=== PATIENT | male | born 1955 | race Caucasian/White ===

== ENCOUNTER 2022-03-12 05:55 | Day surgery (SDC) | payer OTHER, SELFPAY ==
--- NOTE | 2022-03-07 16:20 | EKG12_ITS ---
Test Reason : PRE-OP Blood Pressure : / mmHG Vent. Rate : 081 BPM Atrial Rate : 081 BPM P-R Int : 160 ms QRS Dur : 098 ms QT Int : 382 ms P-R-T Axes : 082 074 080 degrees QTc Int : 443 ms Normal sinus rhythm Normal ECG Confirmed by SAKINA LUONG, TOMY ([id number]), editor farm journal GUMARO CHRISTENSEN ([id number]) on 03/08/2022 8:56:53 AM Referred By: SUE Confirmed By:TOMY PRESLEY MD
[2022-03-07 17:56] LABS: Hemoglobin 13.4 g/dL (13.0-16.5); Mean Corp Hgb Conc 32.7 g/dL (32-36); Mean Corpuscular Hgb 30.4 pg (27.0-32.0); Mean Platelet Vol. 10.9 fl (6.2-12.0); Platelet Count 217 K/mm3 (150-450); RBC Distribution Width CV 13.7 % (11.6-14.6); RBC Distribution Width SD 47.2 fl (35.1-43.9); Red Blood Count 4.41 M/mm3 (4.6-6.2); White Blood Count 6.8 K/mm3 (4.4-11.0)
[2022-03-07 18:43] LABS: Anion Gap 3 (5-15); BUN 16 mg/dL (7-18); BUN/Creat Ratio 18.1 RATIO (10-20); Calcium,Total 8.8 mg/dL (8.5-10.1); Chloride 104 mmol/L (98-107); Creatinine, Serum 0.88 mg/dL (0.70-1.30); EST Glomerular Filtration Rate 92 mL/min (>60); Est Glom Filt Rate - Afr Amer 112 mL/min (>60); Glucose 87 mg/dL (74-106); Potassium 3.7 mmol/L (3.5-5.1); Sodium Level 137 mmol/L (136-145)
[2022-03-12] MEDS: Lactated Ringers 1,000 ML 15 ML IV ×2 (06:05→08:31)
--- NOTE | 2022-03-12 06:13 | DCINST_ITS ---
Discharge Instructions Procedure General Surgery Diet Discharge Diet: Light diet - advance as tolerated (if you have questions about your diet instructions, please talk to you doctor.) Activity Discharge Activity: May Not Drive (for 3-5 days or while taking narcotic pain medicine.) May shower in (days): 1 Lifting Restrictions: 10 pounds Dressing / Incision Call your doctor if your incision/area has: Continuous Slow Oozing, Sudden Increased Bleeding, Increased Pain/ Swelling, Increased Redness and Foul Smelling Discharge Call your doctor if you observe: Fever of 101 or Higher Suture Line Care: Avoid Pulling/Pushing and Avoid Pinching/Bending Additional Dressing/Incision Instructions:: Change or remove dressing in 4 days. Leave steri-strips in place for 1 week. Follow Up Care Please Follow Up With: Keanu Fernández MD When: Call [phone] to make an appointment to be seen in about 10 days. Test Results: Test results from this visit will be discussed in further detail at your follow- up appointment, if applicable. Discharge Plan Admission Attending Provider: Keanu Fernández Primary Care Provider: Gregor Lassiter Discharge Orders/Prescriptions Prescriptions: No Action NK Other Ambulatory Orders: 12 Lead EKG (Routine) Timeframe: [id number] Facility: [facility] - Location: Cardiovascular Services Ordered By: Dr. Alan Vang Referrals / Follow Up: Gregor Lassiter MD [Primary Care Provider] - Disposition Disposition (needs filled in before D/C Order can be placed): Home, Self Care
--- NOTE | 2022-03-12 06:13 | PCM.HP.BLA ---
History and Physical Date of Admission: 03/12/22 Visit Reasons:?INGUINAL HERNIA Chief Complaint: inguinal hernia Is patient in pain?: Yes (4 or 5 when bending over ) Allergies No Known Allergies Allergy (Verified 12/21/15 15:08) PFSH Surgical History?(Updated 03/04/22 @ 15:27 by Ama Rahman) H/O total hip arthroplasty Family History?(Updated 03/04/22 @ 15:28 by Ama Rahman) Sister Colon cancerFather Lung cancerMother COPD (chronic obstructive pulmonary disease) Social History? Smoking Status:? Former smoker HPI HPI HPI: JOSE MANUEL BRIONES, is a 66 M who presents to the office today for surgical consultation regarding a right inguinal hernia.? The patient is referred by Dr Gregor Lassiter and a written copy of my surgical consult recommendations will return to him.? The patient previously had a right inguinal herniorrhaphy performed by Dr. Thee Campos.? The patient states that 6 months after the repair that the patient noticed a bulge. I have an operative note dated January 08, 2016.? This describes a large indirect right inguinal hernia.? Laparoscopically no defect was noted on the left.? There was an umbilical hernia.? The patient had a laparoscopic right inguinal herniorrhaphy with a Bard 3D max light weight mesh large.? Pro-Tech was used to secure repair to the pubic tubercle and then secure strap at the transversalis arch.? An umbilical hernia was fixed with a medium size Ventralex ST mesh. The patient states he was not a fan of the laparoscopic repair and does not want this duplicated.? He notes that very soon after his repair he noticed a bulge.? He has been wearing a hernia belt with a truss for several years.? He notes that multiple times per day he has to help reduce bowel.? 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 He has been a long-term cigarette smoker.? He knew that this was deleterious and he quit 3 months ago. ROS General General: No weight change, appetite, fatigue, colon cancer, breast cancer or weakness HEENT HEENT: No difficulty swallowing, eye injury, eye surgery, swollen glands or hoarseness Endo Endocrine: No thyroid disease, diabetes mellitus, thyroid cancer, Hair loss, heat intolerance or cold intolerance Skin Skin: No rash or changing moles Breast Breast: No left breast lump, right breast lump, nipple discharge, breast pain, abnormal mammogram, abnormal US or breast enlargement Musc Musculoskeletal: No back problems, arthritis, rheumatoid arthritis, gout or joint pain Cardio Cardiovascular: No murmur, pacemaker, heart disease, atrial fibrillation, high blood pressure, heart attack, heart stent, palpitations, shortness of breat with exertion or chest pain Psych Psychiatric: No depression, anxiety or hearing voices Resp Respiratory: No shortness of breath, No sleep apnea, No cough, No COPD, No asthma, No emphysema and No wheezing Gastro Gastrointestinal: No abdominal pain, No nausea or vomiting, No diarrhea, No constipation, No blood in stool, No acid reflux, No hemorrhoids, No ulcers, No gallbladder problem and No black,tarry stools Nicholas Hematologic: No blood thinners, No blood disorders, No bleeding, No anemia and No blood clots Neuro Neurologic: No system reviewed and no additional complaints, except as documented, No as per HPI, No abnormal gait, No abnormal hearing, No abnormal movements, No abnormal speech, No behavioral changes, No burning sensations, No confusion, No convulsions, No disequilibrium, No dizziness, No localized weakness, No frequent falls, No headache(s), No lack of coordination, No loss of vision, No memory loss, No numbness, No other visual disturbances, No radicular pain, No restless legs, No sensory deficit, No syncope, No tingling, No tremor(s), No weakness and No other Exam Const General: cooperative, comfortable and no acute distress Nutritional Appearance: average body habitus Orientation: alert and awake [facility] Head: normal to inspection Eyes General: appearance normal, both eyes and all related structures Neck Neck: normal visual inspection Chest Other: Increased anterior posterior diameter, clear to auscultation Cardio Rate: regular rate Rhythm: regular rhythm GI Other: Soft, nontender, no hepatosplenomegaly Other: Testicles are descended, obvious sizable right inguinal hernia with multiple loops of bowel.? Gentle pressure was required to get reduction.? Significant fixed fascial defect palpable.? Testicles are descended atrophic Musc Cervical Spine: normal cervical lordosis Skin General: no rashes or lesions noted Neuro General: patient alert, patient awake and patient oriented x3 Extrem General: no calf tenderness Psych Appearance: grossly normal Assessment and Plan Assessment and Plan (1) Recurrent right inguinal hernia: ?Status:?Acute ?Plan - Dr. Keanu Fernández MD: 66-year-old gentleman who has a recurrent right inguinal hernia with significant amount of small bowel in his scrotum.? There is a fixed fascial defect.? Failure of the laparoscopic repair with lightweight mesh.? I proposed to the patient a right inguinal herniorrhaphy done through an open approach.? I will attempt a Jasmin approach however due to the very fixed nature of the fascial defect this may require a plug and patch technique.? He is aware of the technique, benefit, risk, alternatives.? He states he is not on any chronic medications.? He does work as a hand meat salter.? I have cautioned him that he will require recuperative time.? He states that he can have someone do the heavy lifting while he does the fine work perhaps starting 2 weeks postoperatively.? He is aware of the technique, benefit, risk, alternatives.? No guarantees of success have been offered. I appreciate the opportunity of assisting with the surgical care Copy: Dr Gregor Fernández M.D., F.A.C.S I have re-examined the patient. There are no clinical changes since date of exam. Keanu Fernández M.D., F.A.C.S.
[2022-03-12 06:20] VITALS: BP 142/92; PULSE 73; RESP 18; TEMP 36.9; O2SAT 95; BMI 24.3
[2022-03-12] MEDS: Cefazolin 2 GM in 0.9% Normal Saline 100 ML IV (07:25)
--- NOTE | 2022-03-12 07:30 | HERN_PTH ---
PATIENT: JOSE MANUEL BRIONES [place] [facility] [id number] AGE/SX: 66/M ROOM: RE03/12/[address]: Dr. Keanu Fernández MD : 1955 BED: DIS: 03/12/2022 SPEC #: [id number] RECD: 03/12/22 09:17 STATUS: ESTELITA REGreg #: [id number] RITA: 03/12/22 07:[address]: Keanu Fernández DEPT: SURGICAL PATHOLOGY RECD BY: Jen Allen ENTERED: 03/12/22 09:36 SP TYPE: Hernia OTHR DR: Dr. Gregor Lassiter MD Tissues: HERNIA Procedures: Surgery Specimen Level II HEADER OPERATION: Open recurrent right inguinal herniorrhaphy with mesh PRE-OP DIAGNOSIS: Recurrent inguinal hernia TISSUE SUBMITTED: Right inguinal hernia sac MICROSCOPIC DIAGNOSIS Right inguinal hernia sac, herniorrhaphy: Fibrosis with focal extraneous pigment deposition. AM:aleta 03/13/2022 MICROSCOPIC DESCRIPTION Slides are reviewed. GROSS DESCRIPTION Received in fixative is one container labeled with the patient's name and designated right inguinal hernia sac. The specimen consists of a piece of schwartz, soft tissue consistent with membranous sac measuring 4.5 cm in length and up to 4 cm in width. No mass lesion is identified. Telephone Ad Taker sections are submitted in one cassette. / SJ:aleta 03/12/2022 TC:5 CPT: 89151
[2022-03-12] MEDS: Bupivacaine Mpf 0.5% 30 ML VIAL (07:44)
--- NOTE | 2022-03-12 08:51 | OP.PCM_ITS ---
Problems Associated Problem List Diagnoses (1) Recurrent right inguinal hernia: Report of Operation Date of Procedure: 03/12/22 Pre-Operative Diagnosis: Recurrent right inguinal hernia Post-Operative Diagnosis: Recurrent indirect right inguinal hernia Surgery/Procedure Performed:: Jasmin recurrent right inguinal herniorrhaphy Bard mesh preshaped keyhole 10 x 4.5 cm lot number [id number], reference [id number], expiry date 05/19/2026 Description of Surgical Findings:: Timeout and informed consent was obtained. 66-year-old gentleman was taken to the operating placed upon table underwent general anesthesia. Right groin and scrotum were sterilely prepped and draped. Ancef 2 g were given intravenously. 0.5% Marcaine was used as a local anesthetic. Skin sites were pretty anesthet ized. A transverse right groin incision was created sharp dissection carried down through the subcutaneous tissue external bleak identified. External bleak was incised to the external ring. There was significant mount of bowel involved within the hernia and this was manually reduced. Circumferential control was obtained of the cord structures and a Jodie drain placed. The cremasterics fibers at the internal ring were transected. Scar tissue was encountered from the previous laparoscopic repair and sharp and blunt dissection was used to free the cord structures at the internal ring. The ilioinguinal nerve was identified and protected. Dissection was performed so as to identify the direct space overlying the pubic tubercle. The sac was then identified at the internal ring it was tediously dissected free. It was a significantly large sac and quite thickened. The sac was opened to ensure no bowel involvement and was completely freed to the internal ring. The sac was then high ligated with 3-0 Vicryl double ligatures. Portion of the sac was amputated and submitted to specimen. Hemostasis was intact. The transversalis fascia was approximated self from the pubic tubercle to the internal ring with a running 3-0 Ethibond. A keyhole mesh was placed around the internal ring and secured to itself laterally with a 3-0 Ethibond. The tails were somewhat shortened and the mesh was placed beneath the external oblique laterally. The ilioinguinal nerve was protected with the cord structures. The mesh was in place was to cover the direct space and overlie the pubic tubercle. It was then secured with multiple interrupted 3-0 Ethibond sutures at the pubic tubercle aponeurosis of the internal Oblique shelving edge of parts. An additional suture was placed at the i nternal ring location. Excellent positioning of the mesh was felt to been achieved with a good flat lie. The external bleak was approximated with interrupted 3-0 Vicryl. The CECE incisional area was no signs with 0.5% Marcaine and a total of 30 cc was used throughout the procedure. Subdermal tissues were approximate interrupted 4-0 Monocryl. Skin edges approximated running subcuticular 4-0 Monocryl. Steri-Strips Telfa OpSite dressings applied. Sponge and instrument and needle counts were reported to the surgeon to be correct. Specimens hernia sac. Drains none. Blood loss minimal. The patient was taken to the recovery room in satisfactory condition without wound complication Keanu Fernández M.D., F.A.C.S. Surgeon: Keanu Fernández
[2022-03-12 09:03] VITALS: BP 142/92; BP 158/94; PULSE 95; RESP 16; TEMP 36.4; O2SAT 99
[2022-03-12 09:15] VITALS: BP 142/92; BP 145/88; PULSE 82; RESP 16; O2SAT 93
[2022-03-12 09:30] VITALS: BP 139/83; BP 142/92; PULSE 73; RESP 16; O2SAT 92
[2022-03-12 09:45] VITALS: BP 137/88; BP 142/92; PULSE 67; RESP 16; TEMP 36.3; O2SAT 93
[2022-03-12 10:30] VITALS: BP 142/92; BP 151/89; PULSE 67; RESP 16; TEMP 36.3; O2SAT 92
== END 2022-03-12 10:40 | disposition home or self-care (01) ==
LOC: SDC 05:57 → AC 05:57
PROVIDERS: Anesthesiology; PCP Family Medicine; Referring Provider Family Medicine; Visit Provider Surgery
PROC: (CPT 49520; principal; 2022-03-12 07:15)
DX: K40.91 Unilateral inguinal hernia, without obstruction or gangrene, recurrent (principal); Z87.891 Personal history of nicotine dependence
CPT/HCPCS: 49520; 00830; 36415; 80048; 85027; 88302; 93005; J7120; C1781; J2405

== ENCOUNTER → 2022-03-13 | Outpatient (CLI) | payer OTHER, SELFPAY ==
--- NOTE | 2022-03-13 14:52 | ECHOD_ITS ---
Reason For Study: MURMUR Procedure This was a 2D Doppler, Color Flow transthoracic echocardiogram. The study was technically difficult. Exam performed in department. Left Ventricle Normal LV size. Left ventricular systolic function is normal. The estimated ejection fraction is 70 %. No evidence for diastolic dysfunction. No regional wall motion abnormalities noted. Right Ventricle Normal RV size. Normal systolic function. Atria Normal left atrium. Normal right atrium. No doppler evidence for ASD. Mitral Valve There is no mitral annular calcification. Normal mitral valve. Trivial mitral valve insufficiency. Tricuspid Valve Normal tricuspid valve. Trivial tricuspid valve insufficiency. Right ventricular systolic pressure estimated to be 32 mmHg. Aortic Valve The aortic valve leaflets are not well visualized in the short axis view, however, based upon other 2D echocardiographic images obtained there appears to be diffuse thickening, calcification, and partial restriction. Severe aortic stenosis. Pulmonic Valve The pulmonic valve is not well visualized. Great Vessels The aortic root is not well visualized. Pericardium/Pleural No pericardial effusion. MMode/2D Measurements & Calculations LVIDd: 4.2 cm IVSd: 1.0 cm LVOT diam: 2.0 cm LVIDs: 2.6 cm LVPWd: 0.98 cm LVOT area: 3.2 cm2 RVDd: 3.5 cm FS: 37.7 % LAV(MOD-bp): 51.5 ml LVAd ap4: 26.3 cm2 SV(MOD-sp4): 50.8 ml LAV(MOD-bp) Indexed: 28.4 ml/m2 LVLd ap4: 8.2 cm LAV(MOD-sp2): 52.5 ml EDV(MOD-sp4): 71.2 ml LAV(MOD-sp4): 48.7 ml EDV(sp4-el): 71.8 ml LVAs ap4: 12.6 cm2 LVLs ap4: 6.8 cm ESV(MOD-sp4): 20.4 ml ESV(sp4-el): 19.9 ml EF(MOD-sp4): 71.4 % EF(sp4-el): 72.2 % SV(sp4-el): 51.9 ml LA A4 area: 18.4 cm2 RA A4 area: 14.8 cm2 Time Measurements MV dec time: 0.22 sec Doppler Measurements & Calculations MV E max fabian: 84.4 cm/sec Lat Peak E' Fabian: 8.8 cm/sec Med Peak E' Fabian: 9.2 cm/sec MV A max fabian: 101.9 cm/sec E/E' lat: 9.5 E/E' med: 9.2 MV E/A: 0.83 Ao V2 max: 486.8 cm/sec LV V1 max: 142.7 cm/sec SV(LVOT): 99.9 ml Ao max P.8 mmHg LV V1 max P.1 mmHg Ao V2 mean: 347.4 cm/sec LV V1 mean P.2 mmHg Ao mean P.6 mmHg LV V1 mean: 95.4 cm/sec Ao V2 VTI: 108.2 cm LV V1 VTI: 31.1 cm VIMAL(I,D): 0.92 cm2 VIMAL(V,D): 0.94 cm2 PA V2 max: 96.9 cm/sec TR max fabian: 268.6 cm/sec TR max P.9 mmHg ECHO/Echo Complete Interpretation Summary The study was technically difficult. Left ventricular systolic function is normal. The estimated ejection fraction is 70 %. Trivial mitral valve insufficiency. Trivial tricuspid valve insufficiency. The aortic valve leaflets are not well visualized in the short axis view, howev er, based upon other 2D echocardiographic images obtained there appears to be diffuse thickening, ca lcification, and partial restriction. Severe aortic stenosis. Right ventricular systolic pressure estimated to be 32 mmHg. No evidence for diastolic dysfunction. Ordering Physician: Gregor Lassiter Referring Physician: Gregor Lassiter Performed By: Nilda Blackwood RDCS
== END | disposition home or self-care (01) ==
LOC: CVS 14:51
PROVIDERS: PCP Family Medicine; Referring Provider Family Medicine; Visit Provider Family Medicine
DX: R01.1 Cardiac murmur, unspecified (principal)
CPT/HCPCS: 93306

== ENCOUNTER → 2022-03-19 | Outpatient (CLI) | payer OTHER, SELFPAY ==
[2022-03-19 18:48] LABS: ALB/GLOB Ratio 0.7 RATIO (0.9-2.4); AST(SGOT) 30 U/L (15-37); Alanine Aminotransfer ALT/SGPT 47 U/L (16-61); Albumin, Serum 3.4 g/dL (3.2-5.0); Alkaline Phosphatase 137 U/L (45-117); Anion Gap 7 (5-15); BUN 13 mg/dL (7-18); BUN/Creat Ratio 17.3 RATIO (10-20); Calcium,Total 9.2 mg/dL (8.5-10.1); Chloride 101 mmol/L (98-107); Cholesterol 244 mg/dL (200); Creatinine, Serum 0.75 mg/dL (0.70-1.30); EST Glomerular Filtration Rate 111 mL/min (>60); Est Glom Filt Rate - Afr Amer 134 mL/min (>60); Globulin 4.7 g/dL (2.2-4.2); Glucose 91 mg/dL (74-106); High Density Lipoprotein 37 mg/dL; Potassium 3.8 mmol/L (3.5-5.1); Protein, Total 8.1 g/dL (6.4-8.2); Sodium Level 136 mmol/L (136-145); Triglycerides 211 mg/dL; Very Low Density Lipoprotein 42 mg/dL (5-40)
== END | disposition home or self-care (01) ==
LOC: MFPLAB 16:37
PROVIDERS: PCP Family Medicine; Visit Provider Family Medicine
DX: E78.5 Hyperlipidemia, unspecified (principal)
CPT/HCPCS: 36415; 80053; 80061

== ENCOUNTER → 2022-06-05 | Outpatient (CLI) | payer OTHER, SELFPAY ==
--- NOTE | 2022-06-05 16:14 | RAD_ITS ---
STUDY: X-RAY CHEST REASON FOR EXAM: Male, 66 years old. CHEST PAIN as TECHNIQUE: XR Chest 2 Views COMPARISON: None FINDINGS: There is no demonstrated pleural abnormality. 4mm right upper lobe nodule. Normal size heart. Normal mediastinum and juanjo. Normal visualized pulmonary arteries. There is atherosclerotic calcification of the aortic arch with tortuosity. There are diffuse degenerative changes of the visualized thoracic spine. There is degenerative osteoarthritis of the bilateral shoulders. There is no demonstrated abnormality of the visualized soft tissue structures of the upper abdomen. RAD/Chest PA and Lateral IMPRESSION: 4mm right upper lobe nodule. Correlation with prior imaging would be helpful if available. Otherwise, please obtain chest CT follow-up. Electronically Signed: Beltran Yun MD at 16:25 EDT ,
[2022-06-05 17:00] LABS: Absolute Lymphocyte Count 3.13 X10^3/uL (0.83-4.51); Absolute Neutrophil Count 4.4 X10^3/uL (2.0-7.7); Basophil# 0.05 X10^3/uL; Basophil% 0.6 % (0-1); Eosinophils% 2.3 % (0-5); Hematocrit 43.7 % (40-54); Hemoglobin 14.4 g/dL (13.0-16.5); Lymphocyte # 3.13 X10^3/ul (0.83-4.51); Lymphocyte % 36.6 % (19-41); Mean Corpuscular Hgb 30.8 pg (27.0-32.0); Mean Corpuscular Volume 93.6 fL (80-94); Mean Platelet Vol. 11.1 fl (6.2-12.0); Monocyte# 0.71 X10^3/uL; Monocyte% 8.3 % (0-10); NRBC Flagged by Analyzer 0 % (0-5); Neutrophil # 4.44 X10^3/uL (2.7-7.7); Neutrophil % 51.8 % (47-70); Platelet Count 209 K/mm3 (150-450); RBC Distribution Width CV 13.3 % (11.6-14.6); RBC Distribution Width SD 45.6 fl (35.1-43.9); Red Blood Count 4.67 M/mm3 (4.6-6.2); White Blood Count 8.6 K/mm3 (4.4-11.0)
[2022-06-05 17:14] LABS: Anion Gap 6 (5-15); BUN 18 mg/dL (7-18); BUN/Creat Ratio 20.7 RATIO (10-20); Calcium,Total 9.3 mg/dL (8.5-10.1); Chloride 103 mmol/L (98-107); Creatinine, Serum 0.87 mg/dL (0.70-1.30); EST Glomerular Filtration Rate 94 mL/min (>60); Est Glom Filt Rate - Afr Amer 113 mL/min (>60); Glucose 87 mg/dL (74-106); Potassium 4.1 mmol/L (3.5-5.1); Sodium Level 138 mmol/L (136-145)
== END | disposition home or self-care (01) ==
PROVIDERS: PCP Family Medicine; Referring Provider Internal Medicine Cardiovascular Disease; Visit Provider Internal Medicine Cardiovascular Disease
DX: I35.0 Nonrheumatic aortic (valve) stenosis (principal)
CPT/HCPCS: 71046; 80048; 85025

== ENCOUNTER → 2022-06-13 | Outpatient (CLI) | payer OTHER, SELFPAY ==
--- NOTE | 2022-06-13 16:56 | CT_ITS ---
INDICATION: nodule on x-ray EXAMINATION: CT CHEST WITHOUT CONTRAST - CT Chest W/O Contrast Injection TECHNIQUE: Helically acquired images were obtained of the chest. A radiation dose optimization technique was used for this scan. IV Contrast dosage and agent: None. COMPARISON: Chest x-ray obtained on 06/05/2022.. FINDINGS: LUNGS, PLEURA AND LARGE AIRWAYS: 0.8 cm densely calcified granuloma visualized in the right upper lobe. No evidence of parenchymal lung nodules or masses is seen. Bronchial wall thickening is visualized. No masses, consolidation, or edema. No pleural effusion or thickening. No pneumothorax. THYROID: No thyroid lesions. HEART AND PERICARDIUM: Heart size is normal. Pericardial wall thickening is visualized. Calcifications visualized in the coronary vessels. VESSELS: Thoracic aorta is not dilated. MEDIASTINUM AND EFREN: Calcified precarinal and right hilar lymph nodes are seen.. Esophagus is unremarkable. No hiatal hernia. UPPER ABDOMEN: No acute pathology. BONES: No suspicious lytic or blastic abnormality. CT/Chest without Contrast IMPRESSION: 0.8 cm calcified granuloma visualized in the right upper lobe. No evidence of parenchymal lung masses or nodules. Calcified mediastinal and right hilar lymph nodes. Electronically Signed: Raj Hu MD at 13:01 EDT Reading Location ID and State: [facility] / [place] Tel , Service support ,
== END | disposition home or self-care (01) ==
PROVIDERS: PCP Family Medicine; Visit Provider Family Medicine
DX: R91.1 Solitary pulmonary nodule (principal)
CPT/HCPCS: 71250

== ENCOUNTER 2022-06-17 08:45 | Outpatient (CLI) | payer OTHER, SELFPAY ==
[2022-06-14 07:18] VITALS: BMI 26.6
--- NOTE | 2022-06-17 08:53 | ECHOTEE_ITS ---
Reason For Study: MURMUR Medication ANUJ probe 6VT-D (SN [id number]) passed with minimal difficulty. No complications were noted. Cetacaine Topical [place] given X3 orally. Versed 3 mg given slow IVP. Fentanyl 50 mcg given slow IVP. Left Ventricle Normal LV size. Left ventricular systolic function is normal. The estimated ejection fraction is 65 %. No regional wall motion abnormalities noted. Right Ventricle Normal RV size. Normal systolic function. Atria Normal atrial septum. Bubble contrast study negative for right to left interatrial shunt. Normal left atrium. No thrombus is detected in the left atrial appendage. Normal right atrium. Mitral Valve Normal mitral valve. Tricuspid Valve Normal tricuspid valve. Aortic Valve Trisinus/trileaflet aortic valve. Moderate focal aortic valve calcification. Mean aortic valve gradient 38 mmHg. Peak aortic valve gradient 62 mmHg. Severe aortic stenosis. Pulmonic Valve Normal pulmonic valve. Vessels Normal aortic root. Normal arch. The pulmonary artery is normal size. Pericardium No pericardial effusion. MMode/2D Measurements & Calculations LVOT diam: 2.2 cm LVOT area: 3.7 cm2 Doppler Measurements & Calculations Ao V2 max: 393.4 cm/sec LV V1 max: 107.4 cm/sec SV(LVOT): 83.0 ml Ao max P.2 mmHg LV V1 max P.6 mmHg Ao V2 mean: 293.7 cm/sec LV V1 mean P.6 mmHg Ao mean P.9 mmHg LV V1 mean: 76.7 cm/sec Ao V2 VTI: 81.6 cm LV V1 VTI: 22.5 cm VIMAL(I,D): 1.0 cm2 VIMAL(V,D): 1.0 cm2 ECHO/Echo Transesophageal (ANUJ) Interpretation Summary Normal LV size. Left ventricular systolic function is normal. The estimated ejection fraction is 65 %. Mean aortic valve gradient 38 mmHg. Peak aortic valve gradient 62 mmHg. Severe aortic stenosis. Ordering Physician: Stephen García Referring Physician: Gregor Lassiter Performed By: Tammi Pedro, KAMARI, RVT
--- NOTE | 2022-06-17 10:16 | CL.D_ITS ---
Patient Name: JOSE MANUEL BRIONES Study Date: 06/17/2022 Performing: Stephen García MD Ht: 67 inches 170.18 cm : 1955 Wt: 170 lbs 77.11 kg Age: 66 Gender: male BSA: 1.89 PROCEDURE(S) PERFORMED DC02-(23800)C/COR CLINICAL PROFILE AND INDICATIONS Indications: Valvular Disease Heart Failure: None Stress/Imaging Stress/Image Study Performed: No CAD Presentations: Symptom unlikely to be ischemic. CONCLUSIONS Non obstructive coronary arteries Aortic Valve Stenosis- Severe Aortic valve mean gradient by echo was 55 mmHg. RECOMMENDATIONS Would refer for TAVR evaluation DESCRIPTION OF PROCEDURE The patient arrived to the procedure lab. The risks and benefits of the procedure as well as a full description of our services here and current unavailability of surgical backup were fully explained to the patient and/or their significant other prior to the catheterization. The Timeout was completed, verifying the correct patient and procedure. The patient's procedural site was prepped and draped in the usual fashion. Local anesthetic was given subcutaneously to right radial region with Lidocaine 2%. Using a modified Seldinger technique, arterial access was obtained via the right radial artery, a 6Fr sheath was inserted. Left Coronary Artery selective angiography was performed in multiple views using a 5 Fr. 4.0 [place] catheter. Right Coronary Artery selective angiography was then performed in multiple views using a 5 Fr. 4.0 [place] catheter.The arterial sheath was pulled and a TR Band was applied for hemostasis w/ 10ml air CORONARY ANGIOGRAPHY DOMINANCE: Co- Dominant LEFT HEART ASSESSMENT Left Ventricular Ejection Fraction: by LV Gram 70 % Normal LV wall motion Normal Left Ventricular systolic function LEFT MAIN: Angiographically normal LEFT ANTERIOR DESCENDING ARTERY: No significant disease noted CIRCUMFLEX ARTERY: Mild luminal irregularities RIGHT CORONARY ARTERY: Mild luminal irregularities VALVE FINDINGS: Aortic Valve Calcification - severe Aortic Valve Stenosis - severe COMPLICATIONS No Complications PROCEDURE MEDICATIONS Versed 1 mg IV Fentanyl 50 mcg IV Versed 1 mg IV Oxygen: 2 L/min via nasal cannula Heparin given IA 06/17/2022 09:51:46 Verapamil 2.5mg, 3000 units of Heparin given IA 06/17/2022 09:51:46 SUMMARY OF HEMODYNAMIC DATA Time AIR REST ECG 09:15:12 AO 111/49 (76) SA 09:53:31 AIR REST 10:12:23 Signed By Stephen García MD On 06/17/2022 10:15:47 Stephen García MD
== END 2022-06-17 13:00 | disposition home or self-care (01) ==
PROVIDERS: PCP Family Medicine; Referring Provider Internal Medicine Cardiovascular Disease; Visit Provider Internal Medicine Cardiovascular Disease
DX: I35.0 Nonrheumatic aortic (valve) stenosis (principal); Z87.891 Personal history of nicotine dependence
CPT/HCPCS: 87426; 93312; 93320; 93325; 93454; 99152; 99153; C9803; J7040; A4216; C1769; C1894; Q9967

== ENCOUNTER → 2022-07-24 | Outpatient (CLI) | payer OTHER, SELFPAY ==
[2022-07-24 18:21] LABS: Anion Gap 7 (5-15); BUN 17 mg/dL (7-18); BUN/Creat Ratio 20.6 RATIO (10-20); Chloride 103 mmol/L (98-107); Creatinine, Serum 0.82 mg/dL (0.70-1.30); EST Glomerular Filtration Rate 100 mL/min (>60); Est Glom Filt Rate - Afr Amer 121 mL/min (>60); Glucose 103 mg/dL (74-106); Potassium 3.7 mmol/L (3.5-5.1); Sodium Level 137 mmol/L (136-145)
== END | disposition home or self-care (01) ==
PROVIDERS: PCP Family Medicine
DX: I35.0 Nonrheumatic aortic (valve) stenosis (principal)
CPT/HCPCS: 36415; 80048

== ENCOUNTER → 2022-09-05 | Outpatient (CLI) | payer OTHER, SELFPAY ==
--- NOTE | 2022-09-05 09:48 | VDLE_ITS ---
Reason For Study: DVT Procedure LEFT This is a venous duplex using B-mode, color GSV is normal. flow and spectral Doppler. CFV is compressible, spontaneous, phasic, Exam performed in department. competent, and demonstrates normal The exam was abbreviated due to the COVID 19 augmentation. protocol. FV is compressible, spontaneous, phasic, The exam was diagnostic. competent and demonstrates normal A preliminary report was called and/or faxed augmentation. to Dr. Liu's office. POP V is compressible, spontaneous, phasic, competent and demonstrates normal augmentation. T/P Trunk is compressible. PTV is compressible. LT PerV is compressible. Soleus V is dilated and noncompressible. VL/Venous Duplex US, Unilateral Interpretation Summary Acute deep vein thrombosis is noted in the left soleus vein. The remainder of t he left lower extremity deep venous system is patent and compressible. Valvular competence ap pears intact within the proximal deep venous system on the left . The left great saphenous vein mich ears patent and compressible segmentally. Ordering Physician: Mark Liu Performed By: Steve Rodriguez RVT
== END | disposition home or self-care (01) ==
PROVIDERS: PCP Family Medicine; Referring Provider Family Medicine; Visit Provider Family Medicine
DX: I82.409 Acute embolism and thrombosis of unspecified deep veins of unspecified lower extremity (principal); I86.8 Varicose veins of other specified sites
CPT/HCPCS: 93971

== ENCOUNTER → 2022-09-12 | Outpatient (CLI) | payer OTHER, SELFPAY ==
--- NOTE | 2022-09-12 08:51 | ART_ITS ---
Reason For Study: decreased pedal pulses Procedure A bilateral lower extremity continuous wave Doppler with analog waveform analysis and ankle brachial indexes. Left Segmental Pressures Left brachial= 142mmHg. Left posterior tibial artery = 153mmHg. Left dorsalis pedis artery = 139mmHg. The left posterior tibial artery waveforms are biphasic. The left dorsalis pedis waveforms are triphasic. Right Segmental Pressures Right brachial= 143mmHg. Right posterior tibial artery = 154mmHg. Right dorsalis pedis artery = 140mmHg. The right posterior tibial artery waveforms are triphasic. The right dorsalis pedis waveforms are biphasic. Indices The right ankle brachial index by the dorsalis pedis is .98. The right ankle brachial index by the posterior tibial artery is 1.08. The left ankle brachial index by the posterior tibial artery is 1.07. The left ankle brachial index by the dorsalis pedis is .97. VL/Ankle Brachial Index Interpretation Summary Triphasic and biphasic Doppler waveforms are noted at ankle level bilaterally. Pulse-volume recordings appear satisfactory at ankle level bilaterally. Resting ankle-brachi al indices are normal bilaterally. There is no evidence of significant arterial occlusive disease in the lower ext remities bilaterally. Ordering Physician: Gregor Lassiter Performed By: Steve Rodriguez RVT
== END | disposition home or self-care (01) ==
LOC: CVS 08:46
PROVIDERS: PCP Family Medicine; Referring Provider Family Medicine; Visit Provider Family Medicine
DX: R09.89 Other specified symptoms and signs involving the circulatory and respiratory systems (principal)
CPT/HCPCS: 93922

== ENCOUNTER → 2022-09-19 | Outpatient (CLI) | payer OTHER, SELFPAY | END | disposition home or self-care (01) | LOC: LAB 16:40 | PROVIDERS: PCP Family Medicine; Visit Provider Physician Assistant | DX: I82.409 Acute embolism and thrombosis of unspecified deep veins of unspecified lower extremity (principal) | CPT/HCPCS: 36415; 86022 ==

== ENCOUNTER → 2022-10-14 | Outpatient (CLI) | payer OTHER, SELFPAY ==
[2022-10-14 15:16] LABS: Absolute Lymphocyte Count 1.66 X10^3/uL (0.83-4.51); Absolute Neutrophil Count 3.2 X10^3/uL (2.0-7.7); Basophil# 0.05 X10^3/uL; Basophil% 0.8 % (0-1); Eosinophil# 0.35 X10^3/uL; Eosinophils% 5.8 % (0-5); Hematocrit 35.7 % (40-54); Hemoglobin 11.2 g/dL (13.0-16.5); Lymphocyte # 1.66 X10^3/ul (0.83-4.51); Lymphocyte % 27.5 % (19-41); Mean Corp Hgb Conc 31.4 g/dL (32-36); Mean Corpuscular Hgb 29.5 pg (27.0-32.0); Mean Corpuscular Volume 93.9 fL (80-94); Mean Platelet Vol. 11.5 fl (6.2-12.0); Monocyte# 0.72 X10^3/uL; Monocyte% 11.9 % (0-10); NRBC Flagged by Analyzer 0 % (0-5); Neutrophil # 3.23 X10^3/uL (2.7-7.7); Neutrophil % 53.7 % (47-70); Platelet Count 233 K/mm3 (150-450); RBC Distribution Width CV 14.2 % (11.6-14.6); RBC Distribution Width SD 48.5 fl (35.1-43.9)
[2022-10-14 16:08] LABS: ALB/GLOB Ratio 0.9 RATIO (0.9-2.4); AST(SGOT) 40 U/L (15-37); Alanine Aminotransfer ALT/SGPT 34 U/L (16-61); Albumin, Serum 3.6 g/dL (3.2-5.0); Alkaline Phosphatase 118 U/L (45-117); Anion Gap 9 (5-15); BUN 12 mg/dL (7-18); Calcium,Total 8.8 mg/dL (8.5-10.1); Chloride 101 mmol/L (98-107); EST Glomerular Filtration Rate 103 mL/min (>60); Est Glom Filt Rate - Afr Amer 124 mL/min (>60); Glucose 82 mg/dL (74-106); Potassium 3.9 mmol/L (3.5-5.1); Protein, Total 7.6 g/dL (6.4-8.2); Sodium Level 137 mmol/L (136-145)
== END | disposition home or self-care (01) ==
LOC: MFPLAB 12:03
PROVIDERS: PCP Family Medicine; Visit Provider Family Medicine
DX: Z01.818 Encounter for other preprocedural examination (principal)
CPT/HCPCS: 36415; 80053; 85025

== ENCOUNTER 2022-10-17 05:54 | Day surgery (SDC) | payer OTHER, SELFPAY ==
[2022-10-17] VITALS (7 sets, daily range): BP systolic 120–135; BP diastolic 77–86; PULSE 88–96; RESP 16–18; TEMP 36.1–37.3; O2SAT 94–98; BMI 27.2
--- NOTE | 2022-10-17 | BON_PTH ---
PATIENT: JOSE MANUEL BRIONES [place] [facility] [id number] AGE/SX: 66/M ROOM: RE10/17/[address]: Dr. Johnny Medellin DPM : 1955 BED: DIS: 10/17/2022 SPEC #: [id number] RECD: 10/17/22 09:36 STATUS: ESTELITA REGreg #: [id number] RITA: 10/17/22 00:[address]: Johnny Medellin DEPT: SURGICAL PATHOLOGY RECD BY: Logan Navarrete ENTERED: 10/17/22 09:36 SP TYPE: Bone OTHR DR: Dr. Gregor Lassiter MD Tissues: Bone of foot, NOS Procedures: Decalcification bone/plaque Surgery Specimen Level IV HEADER OPERATION: Amputation fourth toe PRE-OP DIAGNOSIS: Dry gangrene right fourth toe TISSUE SUBMITTED: Partial right fourth toe MICROSCOPIC DIAGNOSIS Right fourth toe, amputation: Focal ulceration and gangrenous necrosis with associated acute inflammation. Underlying bone with acute osteomyelitis. VENITA:aleta 10/23/2022 MICROSCOPIC DESCRIPTION Slides are reviewed. GROSS DESCRIPTION Received in fixative is one container labeled with the patient's name and designated partial right fourth toe. The specimen consists of a distal toe containing nail, skin, bone and soft tissue measuring 2 cm in length and 1.6 cm in diameter. The plantar surface contains an area of mummification that is black-parson in color measuring 2 x 1.6 cm. A longitudinal section of the entire specimen is submitted in one cassette after decalcification. / AM:aleta 10/17/2022 TC:2 CPT: 80996, 89008
[2022-10-17] MEDS: 0.9% Normal Saline 1,000 ML 25 ML IV (07:05)
[2022-10-17] MEDS: Cefazolin 2 GM in 0.9% Normal Saline 100 ML IV (07:30)
[2022-10-17] MEDS: Bupivacaine Mpf 0.5% 30 ML VIAL (07:54)
--- NOTE | 2022-10-17 08:29 | PCM.OPRPT ---
Problems Associated Problem List Diagnoses (1) Atheromatous embolus of both lower extremities: (2) Gangrene of right foot: (3) Osteomyelitis of foot, right, acute: Report of Operation Date of Procedure: 10/17/22 Pre-Operative Diagnosis: 1) dry gangrene right fourth toe in setting of acute thromboembolism after aortic valve placement secondary to shower emboli Post-Operative Diagnosis: 2) same Surgery/Procedure Performed:: Right fourth toe amputation at the level of fourth metatarsal phalangeal joint Description of Surgical Findings:: Patient underwent aortic valve replacement endovascularly in the right groin subsequently after the procedure developed acute ischemic pain to the right and left lower extremity. Patient was seen by vascular surgeon Dr. Cat placed on cilostazol Eliquis and given nitroglycerin for topical application. At which time I was consulted in the outpatient setting to observe the site and plan any definitive amputation or debridement as necessary. Initially we observe the site for a period of 3 weeks to await demarcation to demonstrate the extent of vascular injury. At which time the fourth digit did necrosis, but it was limited to the site. All other pain and areas of ischemia have resolved since that time. Plan for right fourth digit amputation was subsequently planned. Patient was brought back the operating placed comfortably in supine position on the operating room table. Well-padded ankle tourniquet was applied to right lower extremity this was not used throughout the case. Right lower extremity was bumped using a hip bump. Preoperatively 10 cc of half percent Marcaine plain were used to perform a Jensen block to the right fourth metatarsal phalangeal area. This was performed aseptically. Right lower extremity was then scrubbed prepped draped using typical aseptic manner. Once cleared by anesthesia and additional 10 cc of half percent Marcaine plain were used to perform additional local anesthesia using the after mentioned technique. A linear incision was drawn along the dorsal aspect of the toe down to level of metatarsophalangeal joint this was made full-thickness down to level of bone and capsule using a #15 blade. Subsequently the right fourth digit was dissected and removed at the level of the metatarsal phalangeal joint care was taken to avoid any adjacent neurovascular structures which were protected using blunt retraction. Any bleeders were identified and cauterized. Throughout the case there is noted to be adequate bleeding suggestive of good healing potential to the amputation site. The necrotic tissue was then completely removed and split and sent to pathology and culture labeled as right fourth digit. Incisional site was flushed with copious amounts normal sterile saline. As mentioned no residual necrotic tissue was noted or nonviable tissue and there is good adequate bleeding to the skin and deep tissue. This was then closed using simple interrupted technique with 4-0 Prolene and dressed with bacitracin Adaptic 4 x 4's Kerlix and a very lightly wrapped Ed bandage. Patient was transferred to PACU vital signs stable vascular status intact all digits for further monitoring prior to discharge patient tolerated procedure and anesthesia well in apparent satisfactory condition. Patient will maintain that heel weightbearing status to the right foot and follow-up in 1 week at which time we will change his dressing observe the surgical site.
--- NOTE | 2022-10-17 08:40 | RAD_ITS ---
STUDY: X-RAY - RIGHT FOOT CLINICAL: Male, 66 years old. Right 4th toe amputation TECHNIQUE: 3 view(s) of the foot. COMPARISON: None. FINDINGS: There is a plantar calcaneal spur. Normal visualized subtalar, talonavicular, calcaneocuboid, tarsal and tarsometatarsal articulations. Normal metatarsi. Normal metatarsophalangeal joint of the great toe. Normal tibial and fibular sesamoid bones. Normal interphalangeal joint of the great toe. Normal phalanges of the great toe. Normal second through fifth metatarsophalangeal joints. The patient is status post resection of the fourth toe. Diffuse soft tissue swelling. RAD/Foot min 3 Views IMPRESSION: Status post amputation of the fourth toe with overlying soft tissue swelling. Electronically Signed: Hua Rosales MD at 12:45 EST ,
== END 2022-10-17 09:29 | disposition home or self-care (01) ==
LOC: SDC 05:55 → AC 05:55
PROVIDERS: PCP Family Medicine; Referring Provider Podiatrist; Visit Provider Podiatrist
PROC: (CPT 28820; principal; 2022-10-17 07:15)
DX: M86.171 Other acute osteomyelitis, right ankle and foot (principal); I96 Gangrene, not elsewhere classified; I75.023 Atheroembolism of bilateral lower extremities; E78.5 Hyperlipidemia, unspecified; I35.0 Nonrheumatic aortic (valve) stenosis; Z95.2 Presence of prosthetic heart valve; Z87.891 Personal history of nicotine dependence; Z86.718 Personal history of other venous thrombosis and embolism
CPT/HCPCS: 28820; 01480; 73630; 87070; 87075; 87077; 87176; 87186; 87205; 88304; 88305; 88311; J7030; J7120

== ENCOUNTER → 2022-11-28 | Outpatient (CLI) | payer MEDICARE, SELFPAY ==
[2022-11-28 16:44] LABS: Erythrocyte Sedimentation Rate 19 mm/hr (0-20)
[2022-11-28 16:45] LABS: Absolute Lymphocyte Count 2.62 X10^3/uL (0.83-4.51); Absolute Neutrophil Count 3.3 X10^3/uL (2.0-7.7); Basophil# 0.07 X10^3/uL; Eosinophil# 0.23 X10^3/uL; Eosinophils% 3.4 % (0-5); Hematocrit 41.6 % (40-54); Hemoglobin 13.1 g/dL (13.0-16.5); Lymphocyte # 2.62 X10^3/ul (0.83-4.51); Lymphocyte % 38.4 % (19-41); Mean Corp Hgb Conc 31.5 g/dL (32-36); Mean Corpuscular Hgb 29.8 pg (27.0-32.0); Mean Corpuscular Volume 94.8 fL (80-94); Mean Platelet Vol. 12.2 fl (6.2-12.0); Monocyte% 8.8 % (0-10); NRBC Flagged by Analyzer 0 % (0-5); Neutrophil # 3.26 X10^3/uL (2.7-7.7); Neutrophil % 47.8 % (47-70); Platelet Count 215 K/mm3 (150-450); RBC Distribution Width CV 14.1 % (11.6-14.6); Red Blood Count 4.39 M/mm3 (4.6-6.2); White Blood Count 6.8 K/mm3 (4.4-11.0)
[2022-11-28 19:27] LABS: Anion Gap 7 (5-15); BUN 21 mg/dL (7-18); BUN/Creat Ratio 21.2 RATIO (10-20); CRP 6.16 mg/L (0.0-3.0); Calcium,Total 9.1 mg/dL (8.5-10.1); Chloride 104 mmol/L (98-107); Creatinine, Serum 0.99 mg/dL (0.70-1.30); EST Glomerular Filtration Rate 81 mL/min (>60); Est Glom Filt Rate - Afr Amer 98 mL/min (>60); Glucose 149 mg/dL (74-106); Potassium 3.7 mmol/L (3.5-5.1); Sodium Level 140 mmol/L (136-145)
== END | disposition home or self-care (01) ==
PROVIDERS: PCP Family Medicine; Referring Provider Surgery Trauma Surgery; Visit Provider Surgery Trauma Surgery
DX: I75.023 Atheroembolism of bilateral lower extremities (principal); I35.0 Nonrheumatic aortic (valve) stenosis
CPT/HCPCS: 36415; 80048; 85025; 85652; 86140

== ENCOUNTER 2022-12-10 14:09 | Emergency (ER) | payer MEDICARE, SELFPAY ==
[2022-12-10] VITALS (7 sets, daily range): BP systolic 148–189; BP diastolic 78–99; PULSE 91–107; RESP 16–23; TEMP 36.1; O2SAT 94–97; BMI 28.8
--- NOTE | 2022-12-10 14:32 | EX.ED.DYSGE1 ---
HPI History of Present Illness Chief Complaint: Shortness of Breath Detail of Chief Complaint: Aortic dissection Informant: patient Narrative Narrative: Patient presents to the emergency department from [place] where it was noted that he had a aortic dissection. Patient was seeing vascular surgeon Dr. Cat because he has been getting clots in his toes and has lost some toes amputation. Patient tells me that he had aortic valve replacement at [facility] in August. Since that time is developed a DVT and he is on Eliquis. Patient had a bovine valve placed. His evaluation by Dr. Cat was CTA of the chest abdomen and pelvis which was done today and it was noted that he had an infrarenal aortic dissection. I was asked to transfer patient to [facility] as it was not felt the patient could be taking care of here at [facility]. Patient denies any abdominal pain. He denies chest pain. Only complaint is of some mild dyspnea that he has had since his surgery. [facility] Medical History Cardiology follow-up encounter DVT (deep venous thrombosis) Former smoker History of echocardiogram Hyperlipidemia Nonrheumatic aortic (valve) stenosis Recurrent right inguinal hernia Right upper lobe pulmonary nodule Wears dentures Wears glasses Home Medications aspirin 81 mg tablet,delayed release (Adult Low Dose Aspirin) 81 mg PO DAILY for left heart cath 06/05/22 [History Last Taken 10/16/22] apixaban 5 mg tablet (Eliquis) 5 mg PO BID 09/19/22 [History Last Taken 12/10/22] nitroglycerin 2 % transdermal ointment (Nitro-Bid) 0.5 inch transdermal BID 10/15/22 [History Last Taken 10/16/22] acetaminophen 500 mg capsule 500 mg PO Q6H PRN fever or pain #60 caps 10/17/22 [Rx Last Taken Unknown] oxycodone 5 mg capsule 5 mg PO Q6H PRN pain 7 days #28 caps 10/17/22 [Rx Last Taken Unknown] Allergy/AdvReac Type Severity Reaction Status Date / Time No Known Allergies Allergy Verified 12/10/22 14:15 Family History Sister Colon cancer Father Lung cancer Mother COPD (chronic obstructive pulmonary disease) Brother Sudden cardiac , Onset Age: 56 Surgical History H/O total hip arthroplasty History of left heart catheterization (06/17/22) History of transcatheter aortic valve replacement (TAVR) (08/28/22) History of transesophageal echocardiography (ANUJ) (06/17/22) Hx of hernia repair Hx of umbilical hernia repair Social History Smoking Status: Former smoker alcohol intake: never substance use type: does not use ROS ROS ED Review of Systems ROS Unobtainable: other Constitutional Constitutional ED: Reports lethargy; Denies chills, fever(s), sweats or weight loss Eyes Eyes: Denies blurry vision, change in vision or diplopia ENT ENT ED: Denies rhinorrhea or sore throat Cardiovascular Cardiovascular: Denies chest pain, orthopnea or racing heartbeat Respiratory/Chest Respiratory/Chest: Reports dyspnea; Denies cough, dyspnea on exertion, orthopnea or sputum Gastrointestinal Gastrointestinal: Denies abdominal pain, diarrhea, nausea or vomiting Genitourinary Genitourinary ED: Denies dysuria, hematuria or urinary frequency Musculoskeletal Musculoskeletal: Denies arthralgias, back pain, myalgias or neck pain Integumentary Denies abscess, Abrasions or rash Neurologic Neurologic: Denies headache(s) or weakness Psychiatric Psychiatric: Denies anxiety, depression or suicidal thoughts Endocrine Endocrinology: Denies polydipsia, polyphagia or polyuria Hematologic/Lymphatic Hematologic/Lymphatic: Denies easy bleeding, easy bruising or lymphadenopathy Allergic/Immunologic Allergic/Immunologic ED: Denies mouth swelling, tongue swelling or urticaria EXAM Physical Exam Const Vital Signs: 12/10/22 14:10 12/10/22 14:16 12/10/22 14:16 Temperature 97 F L Temperature Source Temporal Pulse Rate 105 H 107 H Respiratory Rate 18 16 Respiratory Effort Normal Non-Labored Respiratory Depth Normal Respiratory Pattern Normal Blood Pressure 161/83 H 189/99 H Blood Pressure Mean 109 129 Pulse Ox 96 95 Oxygen Delivery Method Bi-pap Room Air Room Air 12/10/22 14:44 Temperature Temperature Source Pulse Rate 99 Respiratory Rate 23 H Respiratory Effort Respiratory Depth Respiratory Pattern Blood Pressure 163/93 H Blood Pressure Mean 116 Pulse Ox 95 Oxygen Delivery Method Room Air Positive well nourished and well developed General Appearance ED: well developed and NAD HEENT Reports TM's clear and moist mucous membranes normocephalic and atraumatic; Negative for trauma or tenderness Tympanic Membrane ED: Yes TM's clear Eyes PERRL and EOMs intact bilaterally General Eye ED: Negative for pale conjunctiva or scleral icterus Neck no lymphadenopathy, supple and no JVD General: Negative for tenderness Chest Wall inspection of chest normal and palpation of chest normal Chest: Negative for tenderness Resp normal respiratory effort and clear to auscultation bilaterally Effort and Inspection: Negative for respiratory distress or pain with movement Auscultation: Negative for rhonchi, wheezes or diminished lung sounds Cardio regular rate, regular rhythm, S1 normal heart sound, S2 normal heart sound and no murmurs Peripheral Pulses: pulses 2+ throughout GI normal to inspection, nondistended, normoactive bowel sounds, soft to palpation, non-tender, non-distended and no masses Back/Spine no CVA tenderness and no thoracic nor lumbar tenderness Extremity Extremity Narrative: Right foot-amputation of fourth toe noted. Left foot-patient has ecchymosis and discoloration to the middle toe. Patient has normal dorsal pedal posterior tibial pulses bilaterally. Patient has normal popliteal pulses. Patient has normal femoral pulses. General Extremety ED: Negative for edema General Extremity: Negative for edema Neuro oriented x3, CN's II-XII intact bilaterally, no sensory deficits noted and gait normal Sensorium / Orientation: awake, alert, oriented to person, oriented to place and oriented to time Motor Exam: strength 5/5 throughout and strength abnormal Psych mental status grossly normal Skin no rashes or lesions noted and no wounds MDM MDM MDM Narrative Medical decision making narrative: I called [facility] after evaluating the patient to discuss with their vascular team. I spoke with Dr. Jean who accepted transfer of patient to their facility. IV line x2 established. Patient placed on a laboratory monitor. Type and screen ordered. Patient chemistries were unremarkable. Patient remains hemodynamically stable. He will be transferred to [facility] for definitive care. Lab Data Labs: Laboratory Results - last 24 hr 12/10/22 12/10/22 14:19 14:19 PT 14.2 INR 1.1 APTT 30.4 Sodium 139 Potassium 3.8 Chloride 103 Carbon Dioxide 31.0 Anion Gap 5 BUN 16 Creatinine 0.87 Estim Creat Clear Calc 81.90 Est GFR (MDRD) Af Amer 113 Est GFR (MDRD) Non-Af 93 BUN/Creatinine Ratio 18.3 Glucose 93 Calcium 9.4 Discharge Plan Triage Chief Complaint: Shortness of Breath ED Provider: Tammy Castaneda Dx/Rx/DC Orders Clinical Impression: Aortic dissection, abdominal, History of aortic valve replacement, History of deep venous thrombosis Prescriptions: No Action aspirin [Adult Low Dose Aspirin] 81 mg tablet,delayed release (DR/EC) 81 mg PO DAILY Eliquis 5 mg tablet 5 mg PO BID Rx Instructions: hold for surgery Nitro-Bid 2 % ointment 0.5 inch transdermal BID Label Comments: 0.5 inch transdermally twice a day Apply to affected digits as needed for pain.- ASK DR. BG TAYLOR DOS oxycodone 5 mg capsule 5 mg PO Q6H PRN (Reason: pain) 7 Days Qty: 28 0RF acetaminophen 500 mg capsule 500 mg PO Q6H PRN (Reason: fever or pain) Qty: 60 0RF Primary Care Provider: Gregor Lassiter Referrals: Gregor Lassiter MD [Primary Care Provider] - Disposition Disposition: DC/Tx to Another Type of HCF
[2022-12-10] MEDS: 0.9% Normal Saline 1,000 ML 150 ML IV (14:41)
[2022-12-10 14:47] LABS: International Normalized Ratio 1.1; Prothrombin Time (Protime)PT. 14.2 SECONDS (11.7-14.9)
[2022-12-10 14:48] LABS: Partial Thromboplast Time 30.4 Seconds (24.1-36.2)
[2022-12-10 14:51] LABS: Anion Gap 5 (5-15); BUN 16 mg/dL (7-18); BUN/Creat Ratio 18.3 RATIO (10-20); Calcium,Total 9.4 mg/dL (8.5-10.1); Chloride 103 mmol/L (98-107); Creatinine, Serum 0.87 mg/dL (0.70-1.30); EST Glomerular Filtration Rate 93 mL/min (>60); Est Glom Filt Rate - Afr Amer 113 mL/min (>60); Glucose 93 mg/dL (74-106); Potassium 3.8 mmol/L (3.5-5.1); Sodium Level 139 mmol/L (136-145)
[2022-12-10 15:32] LABS: Absolute Lymphocyte Count 2.11 X10^3/uL (0.83-4.51); Absolute Neutrophil Count 3.5 X10^3/uL (2.0-7.7); Basophil# 0.04 X10^3/uL; Basophil% 0.6 % (0-1); Eosinophil# 0.17 X10^3/uL; Eosinophils% 2.5 % (0-5); Hematocrit 44.1 % (40-54); Hemoglobin 13.9 g/dL (13.0-16.5); Lymphocyte # 2.11 X10^3/ul (0.83-4.51); Lymphocyte % 31.5 % (19-41); Mean Corp Hgb Conc 31.5 g/dL (32-36); Mean Corpuscular Hgb 29.8 pg (27.0-32.0); Mean Corpuscular Volume 94.4 fL (80-94); Mean Platelet Vol. 12.7 fl (6.2-12.0); NRBC Flagged by Analyzer 0 % (0-5); Neutrophil # 3.54 X10^3/uL (2.7-7.7); Platelet Count 178 K/mm3 (150-450); RBC Distribution Width CV 13.9 % (11.6-14.6); RBC Distribution Width SD 48.2 fl (35.1-43.9); Red Blood Count 4.67 M/mm3 (4.6-6.2); White Blood Count 6.7 K/mm3 (4.4-11.0)
--- NOTE | 2022-12-10 15:35 | NURSING ---
CALLED [facility]YSIC[facility]ANS TO SET UP TRANSPORT- REQUESTED [facility]- ETA IS 40 MINUTES.
== END 2022-12-10 16:25 | disposition short-term general hospital (02) ==
PROVIDERS: Emergency Provider Emergency Medicine; PCP Family Medicine; Visit Provider Emergency Medicine
DX: I71.00 Dissection of unspecified site of aorta (principal); I75.023 Atheroembolism of bilateral lower extremities; E78.5 Hyperlipidemia, unspecified; Z87.891 Personal history of nicotine dependence; Z95.3 Presence of xenogenic heart valve; Z79.01 Long term (current) use of anticoagulants; Z86.718 Personal history of other venous thrombosis and embolism; I35.0 Nonrheumatic aortic (valve) stenosis; Z98.890 Other specified postprocedural states; Z86.79 Personal history of other diseases of the circulatory system
CPT/HCPCS: 36415; 71275; 74174; 80048; 85025; 85610; 85730; 86850; 86900; 86901; 93306; 99285; J7030; Q9957; Q9967; A4216; C8929

== ENCOUNTER → 2022-12-10 | Outpatient (CLI) | payer MEDICARE, SELFPAY ==
--- NOTE | 2022-12-10 12:49 | ECHOCS_ITS ---
Reason For Study: Aortic Stenosis Procedure This was a 2D Doppler, Color Flow transthoracic echocardiogram. The study was technically difficult. Contrast injection was performed. Exam performed in department. Left Ventricle Normal LV size. Left ventricular systolic function is normal. The estimated ejection fraction is 70 %. Stage 1 diastolic dysfunction. No regional wall motion abnormalities noted. Right Ventricle Normal RV size. Normal systolic function. Atria Normal left atrium. Normal right atrium. Mitral Valve Normal mitral valve. Tricuspid Valve Normal tricuspid valve. Aortic Valve Peak aortic valve gradient 36 mmHg. Mean aortic valve gradient 16 mmHg. Trivial aortic valve insufficiency. Bioprosthetic aortic valve. Pulmonic Valve The pulmonic valve is not well visualized. Great Vessels Normal aortic root. The pulmonary artery is normal size. Normal inferior vena cava. Pericardium/Pleural Small pericardial effusion. Medication 20 gauge I.V. with prn adaptor inserted into right arm. Diluted definity 3ml given slow IV push to enhance endocardial definition. MMode/2D Measurements & Calculations LVIDd: 4.8 cm IVSd: 1.1 cm LVOT diam: 2.0 cm LVIDs: 3.3 cm LVPWd: 1.2 cm RVDd: 3.3 cm FS: 29.9 % LVOT area: 3.1 cm2 LAV(MOD-bp): 31.4 ml LA A4 area: 13.9 cm2 RA A4 area: 14.0 cm2 LAV(MOD-bp) Indexed: 15.9 ml/m2 LAV(MOD-sp2): 32.3 ml LAV(MOD-sp4): 30.2 ml Time Measurements MV dec time: 0.15 sec Doppler Measurements & Calculations MV E max fabian: 63.7 cm/sec Lat Peak E' Fabian: 8.9 cm/sec Med Peak E' Fabian: 10.6 cm/sec MV A max fabian: 123.1 cm/sec E/E' lat: 7.2 E/E' med: 6.0 MV E/A: 0.52 MV V2 max: 126.6 cm/sec MV dec slope: 490.0 cm/sec2 Ao V2 max: 298.7 cm/sec MV max P.4 mmHg Ao max P.7 mmHg MV V2 mean: 67.7 cm/sec Ao V2 mean: 182.7 cm/sec MV mean P.3 mmHg Ao mean P.8 mmHg MV V2 VTI: 18.0 cm Ao V2 VTI: 40.7 cm MVA(VTI): 4.0 cm2 AV (velocity ratio): 0.57 VIMAL(I,D): 1.8 cm2 VIMAL(V,D): 1.5 cm2 AI max fabian: 348.8 cm/sec LV V1 max: 145.7 cm/sec SV(LVOT): 71.5 ml AI max P.7 mmHg LV V1 max P.5 mmHg LV V1 mean P.0 mmHg AI dec slope: 269.5 cm/sec2 LV V1 mean: 91.3 cm/sec AI P1/2t: 379.0 msec LV V1 VTI: 23.1 cm PA V2 max: 133.1 cm/sec ECHO/Echo Complete W/ Contrast Interpretation Summary Normal LV size. Left ventricular systolic function is normal. The estimated ejection fraction is 70 %. Stage 1 diastolic dysfunction. Bioprosthetic aortic valve. Mean aortic valve gradient 16 mmHg. Contrast injection was performed. Ordering Physician: Alan Cat Referring Physician: Gregor Lassiter Performed By: Landon Madsen RCS
--- NOTE | 2022-12-10 12:49 | CT_ITS ---
INDICATION: evaluate for source of bilateral embolic events. Recent cardiac valve surgery. EXAMINATION: CTA CHEST, ABDOMEN AND PELVIS WITH CONTRAST - TECHNIQUE: A CTA of the chest, abdomen, and pelvis is obtained with sagittal and coronal reconstructed MIP views. Three-dimensional surface rendered sequence of the thoracic and abdominal aorta was obtained. A radiation dose optimization technique was used for this scan. 100 mL of Isovue-370. Oral contrast: None. COMPARISON: Comparison is made with prior CT scan of the thorax to June 13, 2022. FINDINGS: Small benign-appearing bilateral axillary lymph nodes. CT CHEST: THORACIC AORTA: No atheromatous disease, no aneurysmal changes or dissection. ABDOMINAL AORTA: There is evidence of mural thrombus of the abdominal aorta in the infrarenal segment. This evidence of a either a large ulcerated lesion versus localized dissection in the distal abdominal aorta just proximal to the bifurcation. Mural thrombus is also seen in the iliac arteries bilaterally. Dense calcific plaques are also seen. The distal abdominal aorta has a transverse dimension of 2.8 cm. LUNGS: The lungs are well-expanded without acute or chronic changes. No effusions or pneumothorax. MEDIASTINUM: Benign-appearing mediastinal lymph nodes. Calcified precarinal lymph nodes. No mediastinal or hilar adenopathy. HEART: Heart is normal size. Coronary artery calcification. CT ABDOMEN AND PELVIS: LIVER: The liver enhances homogeneously. No masses identified. GALLBLADDER: The CBD is normal. Normal gallbladder. SPLEEN: Normal. PANCREAS: No masses or inflammation. ADRENAL GLANDS: Normal. KIDNEYS AND URETERS: The kidneys both enhance appropriately. There are normal size and shape. No hydronephrosis. Nonobstructive 5 mm calculus in the anterior midpole calyx of the right kidney.. STOMACH: Normal. SMALL BOWEL: No abnormal distention of the small bowel. MESENTERY: No mesenteric inflammation. No ascites. COLON: Sigmoid diverticulosis. Diffuse circumferential thickening of the rectosigmoid colon. Follow-up is recommended. There is a large fatty ileocecal valve. APPENDIX: The appendix is visualized and normal. IVC: Normal. RETROPERITONEUM: No retroperitoneal lymphadenopathy. PELVIC STRUCTURES: Normal bladder. SOFT TISSUES ABDOMEN: The anterior abdominal wall is normal. SOFT TISSUE CHEST: The extrathoracic soft tissues are normal. BONES: Status post bilateral total hip replacement. Degenerative changes of the lumbar spine. CT/CTA Chst, Abd, Pel W and/or WO IMPRESSION: Mural thrombus in the distal portion of the abdominal aorta with focal dissection versus large ulcerated plaque. Mild dilatation of the distal abdominal aorta. Mural thrombus is also seen in the proximal portions of both common iliac arteries. Electronically Signed: Hua Rosales MD at 14:22 EDT ,
== END | disposition home or self-care (01) ==
LOC: CT 12:46
PROVIDERS: PCP Family Medicine; Referring Provider Surgery Trauma Surgery; Visit Provider Surgery Trauma Surgery
DX: I35.0 Nonrheumatic aortic (valve) stenosis (principal); I75.023 Atheroembolism of bilateral lower extremities; Z98.890 Other specified postprocedural states; Z86.79 Personal history of other diseases of the circulatory system
CPT/HCPCS: 71275; 74174; 93306; Q9957; Q9967; A4216; C8929

== ENCOUNTER → 2023-01-01 | Outpatient (CLI) | payer MEDICARE, SELFPAY ==
[2023-01-01 17:51] LABS: Absolute Lymphocyte Count 2.62 X10^3/uL (0.83-4.51); Absolute Neutrophil Count 3.3 X10^3/uL (2.0-7.7); Basophil# 0.07 X10^3/uL; Eosinophil# 0.28 X10^3/uL; Hematocrit 37.9 % (40-54); Hemoglobin 11.9 g/dL (13.0-16.5); Lymphocyte # 2.62 X10^3/ul (0.83-4.51); Lymphocyte % 37.5 % (19-41); Mean Corp Hgb Conc 31.4 g/dL (32-36); Mean Corpuscular Hgb 28.7 pg (27.0-32.0); Mean Corpuscular Volume 91.5 fL (80-94); Mean Platelet Vol. 11.2 fl (6.2-12.0); NRBC Flagged by Analyzer 0 % (0-5); Neutrophil % 47.2 % (47-70); Platelet Count 280 K/mm3 (150-450); RBC Distribution Width CV 13.2 % (11.6-14.6); RBC Distribution Width SD 44.1 fl (35.1-43.9); Red Blood Count 4.14 M/mm3 (4.6-6.2)
[2023-01-01 18:12] LABS: ALB/GLOB Ratio 0.9 RATIO (0.9-2.4); AST(SGOT) 40 U/L (15-37); Alanine Aminotransfer ALT/SGPT 28 U/L (16-61); Albumin, Serum 3.7 g/dL (3.2-5.0); Alkaline Phosphatase 122 U/L (45-117); Anion Gap 2 (5-15); BUN 15 mg/dL (7-18); BUN/Creat Ratio 15.7 RATIO (10-20); Chloride 104 mmol/L (98-107); Cholesterol 137 mg/dL (200); Creatinine, Serum 0.95 mg/dL (0.70-1.30); EST Glomerular Filtration Rate 84 mL/min (>60); Est Glom Filt Rate - Afr Amer 102 mL/min (>60); Globulin 4.1 g/dL (2.2-4.2); Glucose 88 mg/dL (74-106); High Density Lipoprotein 30 mg/dL; Potassium 3.9 mmol/L (3.5-5.1); Protein, Total 7.8 g/dL (6.4-8.2); Sodium Level 137 mmol/L (136-145); Thyroid Stim Hormone (TSH) 0.87 uIU/mL (0.358-3.74); Triglycerides 175 mg/dL; Very Low Density Lipoprotein 35 mg/dL (5-40)
== END | disposition home or self-care (01) ==
LOC: MFPLAB 16:43
PROVIDERS: PCP Family Medicine; Referring Provider Family Medicine; Visit Provider Family Medicine
DX: I10 Essential (primary) hypertension (principal)
CPT/HCPCS: 36415; 80053; 80061; 84443; 85025

== ENCOUNTER 2023-01-17 10:07 | Day surgery (SDC) | payer MEDICARE, SELFPAY ==
[2023-01-17] VITALS (9 sets, daily range): BP systolic 110–133; BP diastolic 74–83; PULSE 82–95; RESP 16–18; TEMP 36.1–36.8; O2SAT 90–93; BMI 26.8
[2023-01-17] MEDS: Lactated Ringers 1,000 ML 15 ML IV (10:48)
--- NOTE | 2023-01-17 11:40 | BON_PTH ---
PATIENT: JOSE MANUEL BRIONES LOC: [facility] [place] U#:[id number] AGE/SX: 67/M ROOM: RE01/17/[address]: Dr. Johnny Medellin DPM : 1955 BED: DIS: 01/17/2023 SPEC #: [id number] RECD: 01/17/23 13:33 STATUS: ESTELITA REGreg #: [id number] RITA: 01/17/23 11:[address]: Johnny Medellin DEPT: SURGICAL PATHOLOGY RECD BY: Jen Allen ENTERED: 01/17/23 13:59 SP TYPE: Bone OTHR DR: Dr. Gregor Lassiter MD Tissues: Toe, NOS Procedures: Decalcification bone/plaque Special Stain Group I Surgery Specimen Level IV GMS Stain (control) HEADER OPERATION: Third toe amputation PRE-OP DIAGNOSIS: Gangrene left foot TISSUE SUBMITTED: Left third toe MICROSCOPIC DIAGNOSIS Left third toe, amputation: Skin with focal eschar formation. Bone with reactive and reparative change. No evidence of acute osteomyelitis. See comment. AM:aleta 01/22/2023 GROSS DIAGNOSIS The eschar is present in the nailbed. Clinical correlation is suggested. GMS stain with matched control was used in the evaluation of this case and does not reveal fungal organisms. MICROSCOPIC DESCRIPTION Slides are reviewed. GROSS DESCRIPTION Received in fixative is one container labeled with the patient's name and designated left third toe. The specimen consists of a portion of toe consisting of skin, nail and underlying bone measuring 2.9 x 1.5 x 1.5 cm. The nail shows some bluish-brown discoloration. No obvious ulceration is noted. Also present in the container are multiple fragments of schwartz soft tissue measuring in aggregate 3.0 x 2.5 x 0.3 cm. Also present in the container are multiple detached fragments of bone measuring in aggregate 3.0 x 3.0 x 0.5 cm. Medical Illustrator sections are submitted in three cassettes as follows: 1 ? detached pieces of soft tissue, 2 ? detached pieces of bone after decalcification, 3 & 4 ? longitudinal sections through the toe including skin, nail and underlying bone. / SJ:aleta 01/17/2023 TC:5 CPT: 39123, 93495, 89316
[2023-01-17] MEDS: Cefazolin 2 GM in 0.9% Normal Saline 100 ML IV (12:09)
[2023-01-17] MEDS: Bupivacaine 0.25% 30 ML Vial (12:54)
--- NOTE | 2023-01-17 13:11 | PCM.OPRPT ---
Problems Associated Problem List Diagnoses (1) Peripheral vascular disease, unspecified: Report of Operation Date of Procedure: 01/17/23 Pre-Operative Diagnosis: 1) painful ischemic left 3rd toe Post-Operative Diagnosis: same Surgery/Procedure Performed:: Left 3rd toe amputation Description of Surgical Findings:: Patient has suffered multiple thromboembolisms in setting of shower emboli secondary to a possible thrombus within his aorta. This occurred after patient underwent endovascular cardiac surgery at the [facility] several months prior patient developed acute blue toe syndrome with acute pain in the setting of normal arterial flow to bilateral lower extremity. This ultimately led to ulceration and necrosis to his right digit which required amputation. Recently his left third digit became painful and blue discolored in a similar manner. Additional work-up yielded this thrombus within the abdominal aorta which could be potentially a source for a shower embolus to cause this acute ischemic issue. Due to pain and discoloration of the toe decision was made for left third digit amputation. Patient was brought back the operating placed comfortably in supine position on the operating table. Patient induced under MAC anesthesia. Preoperatively 10 cc of 0.25% Marcaine plain were applied for digital block to the left third digit. Well-padded left ankle tourniquet was applied this was not used throughout the case left lower extremity scrubbed prepped and draped using typical aseptic fashion. Using fishmouth incision just distal to the third metatarsal phalangeal joint this incision was made full-thickness with a 15 blade down the level of bone and the digit was disarticulated at the level of the metatarsal phalangeal joint on the left side. Digit was passed to the back table for pathologic examination to be sent. The amputation site was examined and flushed with copious etienne normal sterile saline there is noted to be adequate bleeding no acute bleeders need to be addressed. Incisional site was closed with 4-0 nylon using simple interrupted technique. Additional local was applied consisting of 18 cc using a modified Jensen block technique to the third ray of the left foot of 0.25% Marcaine plain. Foot was cleansed and incision was dressed with Betadine Adaptic 4 x 4's Kerlix and a light Ed and a light Ed bandage. Patient tolerated procedure and anesthesia well apparent satisfactory condition. Patient transferred to PACU vital signs stable vascular status intact all digits for further monitoring prior to discharge. We will follow-up in 1 week maintain heel weightbearing protective device. Surgeon: Johnny Medellin risk adjustment specialist: None (gurpreet morrison) Type of Anesthesia: Local MAC Special Medications: 28cc 0.25% marcaine plain Specimen's removed: left 3rd toe Estimated Blood Loss (mL): 10cc Description of Procedure: see above Grafts/Implants Used: none Complications none Admit VTE Documentation VTE Present on Admission: Yes VTE Mechan Device Prophylaxis: SCD's VTE Pharm Prophylaxis ordered?: Yes
== END 2023-01-17 14:37 | disposition home or self-care (01) ==
LOC: SDC 10:11 → AC 10:11
PROVIDERS: PCP Family Medicine; Referring Provider Podiatrist; Visit Provider Podiatrist
PROC: (CPT 28820; principal; 2023-01-17 11:25)
DX: I73.9 Peripheral vascular disease, unspecified (principal); I71.02 Dissection of abdominal aorta; I74.10 Embolism and thrombosis of unspecified parts of aorta; I75.023 Atheroembolism of bilateral lower extremities; Z87.891 Personal history of nicotine dependence; E78.5 Hyperlipidemia, unspecified; Z79.82 Long term (current) use of aspirin
CPT/HCPCS: 28820; 88305; 88311; 88312; J7120; J2405

== ENCOUNTER → 2023-02-19 | Outpatient (CLI) | payer MEDICARE, SELFPAY ==
[2023-02-19 17:24] LABS: Hematocrit 36.4 % (40-54); Hemoglobin 11.4 g/dL (13.0-16.5); Mean Corp Hgb Conc 31.3 g/dL (32-36); Mean Corpuscular Hgb 28.4 pg (27.0-32.0); Mean Corpuscular Volume 90.8 fL (80-94); Platelet Count 203 K/mm3 (150-450); RBC Distribution Width CV 15.3 % (11.6-14.6); RBC Distribution Width SD 50.3 fl (35.1-43.9); Red Blood Count 4.01 M/mm3 (4.6-6.2); White Blood Count 7.9 K/mm3 (4.4-11.0)
[2023-02-19 17:50] LABS: Anion Gap 7 (5-15); BUN 26 mg/dL (7-18); BUN/Creat Ratio 14.7 RATIO (10-20); Calcium,Total 9.1 mg/dL (8.5-10.1); Chloride 105 mmol/L (98-107); Creatinine, Serum 1.77 mg/dL (0.70-1.30); EST Glomerular Filtration Rate 41 mL/min (>60); Est Glom Filt Rate - Afr Amer 50 mL/min (>60); Glucose 134 mg/dL (74-106); Potassium 3.8 mmol/L (3.5-5.1); Sodium Level 139 mmol/L (136-145)
== END | disposition home or self-care (01) ==
LOC: MFPLAB 16:57
PROVIDERS: PCP Family Medicine; Visit Provider Nurse Practitioner Family
DX: R31.9 Hematuria, unspecified (principal)
CPT/HCPCS: 36415; 80048; 85027

== ENCOUNTER → 2023-02-26 | Outpatient (CLI) | payer MEDICARE, SELFPAY ==
--- NOTE | 2023-02-26 18:06 | CT_ITS ---
STUDY: CT ABDOMEN AND PELVIS WITHOUT CONTRAST REASON FOR EXAM: Male, 67 years old. HEMATURIA RADIATION DOSAGE (If Supplied By Facility): CTDIvol = ( 15.63 ) mGy, DLP = ( 741.75 ) mGycm TECHNIQUE: Transaxial images were obtained from the dome of the diaphragm to the symphysis pubis without oral contrast, and without intravenous contrast. Sagittal and coronal images were reconstructed. Individualized dose optimization techniques were used for this CT. COMPARISON: None. FINDINGS: The visualized lung bases are unremarkable. Mild thickening of the pericardium. Calcified mitral valve annulus. Coronary artery calcification. Normal liver. Normal gallbladder and extrahepatic biliary system. There are multiple benign calcified granulomata of the spleen. Normal pancreas. Normal bilateral adrenal glands. Punctate calculus in the midpole calyx of the right kidney. Normal left kidney. Normal visualized stomach. Normal small intestine. There are multiple colonic diverticula consistent with diverticulosis. The appendix is visualized and appears normal. There is diffuse atherosclerotic calcification of the abdominal aorta. Mild aneurysmal dilatation of the distal portion of the abdominal aorta with a transverse dimension of 3 cm. Normal inferior vena cava. Normal retroperitoneum. Normal urinary bladder. Normal abdominal wall. There are degenerative changes of the visualized lumbar spine. The patient is status post bilateral total hip preplacement causing beam hardening artifact within the pelvis and limited visualization of the pelvic structures. CT/Abdomen/Pelvis without Cont IMPRESSION: Sigmoid diverticulosis. Punctate calculus in the midpole calyx of the right kidney. Distal abdominal aorta measures 3 cm in transverse dimension. Electronically Signed: Hua Rosales MD at 12:39 EDT ,
== END | disposition home or self-care (01) ==
LOC: CT 17:51
PROVIDERS: PCP Family Medicine; Referring Provider Nurse Practitioner Family; Visit Provider Nurse Practitioner Family
DX: R31.9 Hematuria, unspecified (principal)
CPT/HCPCS: 74176

== ENCOUNTER → 2023-03-18 | Outpatient (CLI) | payer MEDICARE, SELFPAY | END | disposition home or self-care (01) | LOC: LAB 14:38 | PROVIDERS: PCP Family Medicine; Referring Provider Urology; Visit Provider Urology | DX: Z12.5 Encounter for screening for malignant neoplasm of prostate (principal) | CPT/HCPCS: 36415; 84153; G0103 ==

== ENCOUNTER → 2023-04-03 | Outpatient (CLI) | payer MEDICARE, SELFPAY ==
[2023-04-03 17:35] LABS: Absolute Lymphocyte Count 2.64 X10^3/uL (0.83-4.51); Absolute Neutrophil Count 3.3 X10^3/uL (2.0-7.7); Basophil# 0.06 X10^3/uL; Basophil% 0.9 % (0-1); Eosinophils% 2.9 % (0-5); Hematocrit 39.8 % (40-54); Hemoglobin 12.4 g/dL (13.0-16.5); Lymphocyte # 2.64 X10^3/ul (0.83-4.51); Lymphocyte % 38.4 % (19-41); Mean Corp Hgb Conc 31.2 g/dL (32-36); Mean Corpuscular Hgb 28.7 pg (27.0-32.0); Mean Corpuscular Volume 92.1 fL (80-94); Mean Platelet Vol. 11.8 fl (6.2-12.0); Monocyte# 0.69 X10^3/uL; NRBC Flagged by Analyzer 0 % (0-5); Neutrophil # 3.27 X10^3/uL (2.7-7.7); Neutrophil % 47.5 % (47-70); Platelet Count 207 K/mm3 (150-450); RBC Distribution Width CV 15.1 % (11.6-14.6); RBC Distribution Width SD 51.2 fl (35.1-43.9); Red Blood Count 4.32 M/mm3 (4.6-6.2); White Blood Count 6.9 K/mm3 (4.4-11.0)
[2023-04-03 18:38] LABS: ALB/GLOB Ratio 0.8 RATIO (0.9-2.4); AST(SGOT) 37 U/L (15-37); Alanine Aminotransfer ALT/SGPT 23 U/L (16-61); Albumin, Serum 3.6 g/dL (3.2-5.0); Alkaline Phosphatase 110 U/L (45-117); Anion Gap 4 (5-15); BUN 13 mg/dL (7-18); BUN/Creat Ratio 14.3 RATIO (10-20); Calcium,Total 8.8 mg/dL (8.5-10.1); Chloride 104 mmol/L (98-107); Cholesterol 120 mg/dL (200); Creatinine, Serum 0.91 mg/dL (0.70-1.30); EST Glomerular Filtration Rate 89 mL/min (>60); Est Glom Filt Rate - Afr Amer 108 mL/min (>60); Globulin 4.5 g/dL (2.2-4.2); Glucose 91 mg/dL (74-106); High Density Lipoprotein 35 mg/dL; Potassium 3.7 mmol/L (3.5-5.1); Protein, Total 8.1 g/dL (6.4-8.2); Sodium Level 138 mmol/L (136-145); Triglycerides 134 mg/dL; Very Low Density Lipoprotein 27 mg/dL (5-40)
[2023-04-04 17:42] LABS: Vitamin B12 360 pg/mL (211-911)
[2023-04-04 18:20] LABS: Ferritin 112 ng/mL (26-388); Iron 54 ug/dL (65-175); Iron Binding Capacity,Total 314 ug/dL (250-450); PERCENT IRON SATURATION 17.2 % (15.0-55.0)
== END | disposition home or self-care (01) ==
LOC: MFPLAB 17:02
PROVIDERS: PCP Family Medicine; Visit Provider Family Medicine
DX: D64.9 Anemia, unspecified (principal); E78.5 Hyperlipidemia, unspecified
CPT/HCPCS: 36415; 80053; 80061; 82607; 82728; 83540; 83550; 85025

== ENCOUNTER → 2023-04-07 | Outpatient (CLI) | payer MEDICARE, SELFPAY ==
--- NOTE | 2023-04-07 | PROSBIL_PTH ---
PATIENT: JOSE MANUEL BRIONES LOC: [facility] U#:[id number] AGE/SX: 67/M ROOM: RE04/07/[address]: Dr. Orlando Cleaning MD : 1955 BED: DIS: 04/07/2023 SPEC #: [id number] RECD: 04/07/23 15:00 STATUS: ESTELITA EVA #: [id number] RITA: 04/07/23 00:[address]: Orlando Cleaning DEPT: SURGICAL PATHOLOGY RECD BY: Cathryn Fishman ENTERED: 04/08/23 06:48 SP TYPE: PROST BX JEB DR: Dr. Gregor Lassiter MD Tissues: A - PROSTATE RIGHT B - PROSTATE RIGHT C - PROSTATE RIGHT D - PROSTATE LEFT E - PROSTATE LEFT F - PROSTATE LEFT Procedures: PROSTATE BX HEADER OPERATION: Prostate biopsy PRE-OP DIAGNOSIS: Elevated PSA TISSUE SUBMITTED: A - Right apex, B - Right mid, C - Right base, D - Left apex, E - Left mid, F - Left base MICROSCOPIC DIAGNOSIS A. Right prostate, apex, core biopsy: Focal high-grade prostatic intraepithelial neoplasia (HGPIN). See comment. B. Right prostate, mid, core biopsy: Prostatic tissue, negative for malignancy. See comment. C. Right prostate, base, core biopsy: Focal high-grade prostatic intraepithelial neoplasia (HGPIN). See comment. D. Left prostate, apex, core biopsy: Prostatic tissue, negative for malignancy. E. Left prostate, mid, core biopsy: Focal high-grade prostatic intraepithelial neoplasia (HGPIN). See comment. F. Left prostate, base, core biopsy: Focal high-grade prostatic intraepithelial neoplasia (HGPIN). See comment. SJ:rg 04/09/2023 COMMENT A-C, E & F - Immunohistochemistry ([id number]) supports the above diagnosis. Case has been reviewed in consultation with Dr. Marsh who concurs with the above diagnosis. IDC:AM MICROSCOPIC DESCRIPTION Slides are reviewed. GROSS DESCRIPTION A - Received is one container designated prostate, right apex. The specimen consists of two elongated fragments of light schwartz-white soft tissue each measuring 1.2 cm in length and 0.1 cm in diameter. The specimen is totally submitted in one cassette. B - Received is one container designated prostate, right mid. The specimen consists of two elongated fragments of light schwartz-white soft tissue each measuring 1.1 cm in length and 0.1 cm in diameter. The specimen is totally submitted in one cassette. C - Received is one container designated prostate, right base. The specimen consists of two elongated fragments of light schwartz-white soft tissue each measuring 1.1 cm in length and 0.1 cm in diameter. The specimen is totally submitted in one cassette. D - Received is one container designated prostate, left apex. The specimen consists of one elongated fragment of light schwartz-white soft tissue measuring 1.5 cm in length and 0.1 cm in diameter. The specimen is totally submitted in one cassette. E - Received is one container designated prostate, left mid. The specimen consists of two elongated fragments of light schwartz-white soft tissue each measuring 1.4 cm in length and 0.1 cm in diameter. The specimen is totally submitted in one cassette. F - Received is one container designated prostate, left base. The specimen consists of two elongated fragments of light schwartz-white soft tissue each measuring 1.5 cm in length and 0.1 cm in diameter. The specimen is totally submitted in one cassette. / SJ:rg 04/08/2023 TC:5 CPT: G0146
--- NOTE | 2023-04-07 | IMM_PTH ---
PATIENT: JOSE MANUEL BRIONES LOC: [facility] U#:[id number] AGE/SX: 67/M ROOM: RE04/07/[address]: Dr. Orlando Cleaning MD : 1955 BED: DIS: 04/07/2023 SPEC #: [id number] RECD: 04/09/23 13:02 STATUS: ESTELITA REQ #: [id number] RITA: 04/07/23 00:[address]: Orlando Cleaning DEPT: IMMUNOHISTOCHEMISTRY RECD BY: Jonelle García ENTERED: 04/09/23 13:06 SP TYPE: IMMUNO OTHR DR: Dr. Gregor Lassiter MD Tissues: A - PROSTATE RIGHT B - PROSTATE RIGHT C - PROSTATE RIGHT E - PROSTATE LEFT F - PROSTATE LEFT Procedures: 34BE12 (add) P40 (add) 34BE12 (initial) PHYSICIAN & INSTITUTION [place] [id number] SPECIMEN INFORMATION: Tissue Source: A - Right apex, B - Right mid, C - Right base, E - Left mid, F - Left base Clinical Info: Elevated PSA Specimen Number: [id number] A-C, E & F CPT code: 15484, 67698 x9 METHODOLOGY: Deparaffinized sections of prefer/formalin-fixed tissue or PAP/DQ stained slides are incubated with monoclonal/polyclonal antibodies/oligonucleotide probes. Localization is made via biotin free immunoperoxidase method. Appropriate controls are performed and reacted as expected. Results on target cell population are indicated in the following table: RESULTS: ANTIBODY / CLONE RESULT Block A P40 (BC28) positive 34BE12 (34BE12) positive Block B P40 (BC28) positive 34BE12 (34BE12) positive Block C P40 (BC28) positive 34BE12 (34BE12) positive Block E P40 (BC28) positive 34BE12 (34BE12) positive Block F P40 (BC28) positive 34BE12 (34BE12) positive These tests were developed and their performance characteristics determined by [facility]. They may not have been cleared or approved by the U.S. Food and Drug Administration. The FDA has determined that such clearance or approval is not necessary. The above immunohistochemical/dualISH markers are ordered and reviewed by the Pathologist. INTERPRETATION: A. Right prostate, apex, core biopsy: Focal high-grade prostatic intraepithelial neoplasia (HGPIN). B. Right prostate, mid, core biopsy: Negative for malignancy. C. Right prostate, base, core biopsy: Focal high-grade prostatic intraepithelial neoplasia (HGPIN). E. Left prostate, mid, core biopsy: Focal high-grade prostatic intraepithelial neoplasia (HGPIN). F. Left prostate, base, core biopsy: Focal high-grade prostatic intraepithelial neoplasia (HGPIN). Case has been reviewed in consultation with Dr. Marsh who concurs with the above diagnosis. IDC:[email or web address] SJ:aleta 04/10/2023
== END | disposition home or self-care (01) ==
LOC: LABSPEC 15:56
PROVIDERS: PCP Family Medicine; Referring Provider Urology; Visit Provider Urology
DX: R97.20 Elevated prostate specific antigen [PSA] (principal)
CPT/HCPCS: 88305; 88341; 88342; G0416

== ENCOUNTER → 2023-07-21 | Outpatient (CLI) | payer MEDICARE, SELFPAY ==
[2023-07-21 14:04] LABS: Anion Gap 1 (5-15); BUN 23 mg/dL (7-18); BUN/Creat Ratio 19.5 RATIO (10-20); Calcium,Total 9.9 mg/dL (8.5-10.1); Chloride 105 mmol/L (98-107); Creatinine, Serum 1.18 mg/dL (0.70-1.30); EST Glomerular Filtration Rate 66 mL/min (>60); Est Glom Filt Rate - Afr Amer 80 mL/min (>60); Glucose 102 mg/dL (74-106); Potassium 4.3 mmol/L (3.5-5.1); Sodium Level 134 mmol/L (136-145)
== END | disposition home or self-care (01) ==
LOC: LAB 12:20
PROVIDERS: PCP Family Medicine; Visit Provider Nurse Practitioner Family
DX: I71.02 Dissection of abdominal aorta (principal); Z95.2 Presence of prosthetic heart valve
CPT/HCPCS: 36415; 80048

== ENCOUNTER → 2023-08-28 | Outpatient (CLI) | payer MEDICARE, SELFPAY ==
--- NOTE | 2023-08-28 10:34 | ECHOCS_ITS ---
Reason For Study: 1 year post TAVR Procedure This was a 2D Doppler, Color Flow transthoracic echocardiogram. The study was technically difficult. Contrast injection was performed. Exam performed in department. Left Ventricle Normal LV size. Left ventricular systolic function is normal. The estimated ejection fraction is 60 %. No regional wall motion abnormalities noted. Right Ventricle Normal RV size. Normal systolic function. Atria Normal left atrium. Normal right atrium. Mitral Valve Normal mitral valve. Tricuspid Valve Normal tricuspid valve. Mild to moderate (1-2+) tricuspid valve insufficiency. Pulmonary artery systolic pressure is 40 mmHg. Aortic Valve Peak aortic valve gradient 37 mmHg. Mean aortic valve gradient 16 mmHg. Bioprosthetic aortic valve. Great Vessels Normal aortic root. The pulmonary artery is normal size. Normal inferior vena cava. Pericardium/Pleural No pericardial effusion. Medication 22 gauge I.V. with prn adaptor inserted into right arm. Diluted definity 2.5ml given slow IV push to enhance endocardial definition. MMode/2D Measurements & Calculations RVDd: 3.3 cm LVOT diam: 2.0 cm LA dimension: 4.3 cm LVOT area: 3.2 cm2 LAV(MOD-bp): 55.7 ml LA A4 area: 19.9 cm2 RA A4 area: 14.7 cm2 LAV(MOD-bp) Indexed: 27.7 ml/m2 LAV(MOD-sp2): 54.1 ml LAV(MOD-sp4): 56.3 ml TAPSE: 1.9 cm Time Measurements MV dec time: 0.24 sec Doppler Measurements & Calculations MV E max fabian: 78.8 cm/sec Lat Peak E' Fabian: 10.1 cm/sec Med Peak E' Fabian: 9.8 cm/sec MV A max fabian: 122.4 cm/sec E/E' lat: 7.8 E/E' med: 8.0 MV E/A: 0.64 MV V2 max: 133.7 cm/sec MV P1/2t max fabian: 94.9 cm/sec Ao V2 max: 304.0 cm/sec MV max P.1 mmHg MV P1/2t: 85.4 msec Ao max P.0 mmHg MV V2 mean: 69.5 cm/sec MV dec slope: 325.6 cm/sec2 Ao V2 mean: 181.8 cm/sec MV mean P.3 mmHg Ao mean P.0 mmHg MV V2 VTI: 27.5 cm MVA(P1/2t): 2.6 cm2 Ao V2 VTI: 50.1 cm MVA(VTI): 3.3 cm2 AV (velocity ratio): 0.56 VIMAL(I,D): 1.8 cm2 VIMAL(V,D): 1.7 cm2 LV V1 max: 157.2 cm/sec SV(LVOT): 90.5 ml PA V2 max: 133.4 cm/sec LV V1 max P.9 mmHg LV V1 mean P.5 mmHg LV V1 mean: 111.7 cm/sec LV V1 VTI: 27.9 cm TR max fabian: 294.2 cm/sec TR max P.6 mmHg ECHO/Echo Complete W/ Contrast Interpretation Summary Normal LV size. Left ventricular systolic function is normal. The estimated ejection fraction is 60 %. Bioprosthetic aortic valve. Mean aortic valve gradient 16 mmHg. Contrast injection was performed. Ordering Physician: Gregor Bowles Referring Physician: Gregor Bowles Performed By: Landon Madsen RCS
== END | disposition home or self-care (01) ==
LOC: CVS 10:33
PROVIDERS: PCP Family Medicine; Referring Provider Nurse Practitioner Family; Visit Provider Nurse Practitioner Family
DX: Z95.2 Presence of prosthetic heart valve (principal)
CPT/HCPCS: 93306; Q9957; A4216; C8929

== ENCOUNTER 2023-10-14 05:17 | Day surgery (SDC) | payer MEDICARE, SELFPAY ==
[2023-10-14] MEDS: Lactated Ringers 1,000 ML 15 ML IV (05:51)
[2023-10-14 05:53] VITALS: BP 124/84; PULSE 90; RESP 18; TEMP 36.9; O2SAT 98; BMI 27.8
--- NOTE | 2023-10-14 06:16 | HP.PCM_ITS ---
History and Physical Date of Admission: 10/14/23 Visit Reasons: POSITIVE COLOGUARD Chief Complaint: positive cologuard Education Administrator Required: No Is patient in pain?: No Allergies No Known Allergies Allergy (Verified 08/21/23 14:27) Medications aspirin 81 mg tablet,delayed release (Adult Low Dose Aspirin) 81 mg PO DAILY 06/05/22 [History Confirmed 08/21/23] atorvastatin 40 mg tablet (Lipitor) 40 mg PO DAILY 12/19/22 [History Confirmed 08/21/23] cilostazol 50 mg tablet 50 mg PO BID 12/19/22 [History Confirmed 08/21/23] lisinopril 10 mg tablet 10 mg PO DAILY #90 tabs 08/04/23 [Rx Confirmed 08/21/23] PFS Medical History Cardiology follow-up encounter DVT (deep venous thrombosis) Former smoker History of echocardiogram Hyperlipidemia Nonrheumatic aortic (valve) stenosis Recurrent right inguinal hernia Right upper lobe pulmonary nodule Shortness of breath on exertion Wears dentures Wears glasses Surgical History H/O total hip arthroplasty History of cardiac catheterization History of left heart catheterization (06/17/22) History of transcatheter aortic valve replacement (TAVR) (08/28/22) History of transesophageal echocardiography (ANUJ) (06/17/22) Hx of amputation Hx of hernia repair Hx of umbilical hernia repair Family History Sister Colon cancerFather Lung cancerMother COPD (chronic obstructive pulmonary disease)Brother Sudden cardiac , Onset Age: 56 Social History Smoking Status: Former smoker alcohol intake: never substance use type: does not use HPI HPI HPI: 67-year-old gentleman. He is referred by Rocio Dhaliwal from [facility] because of a stool occult blood positive. A written copy my surgical consult recommendation will be returned to her. The patient has a pertinent history of a sister who is from colon cancer. I have assisted him previously on March 12, 2022 with a Jasmin repair of a recurrent right inguinal hernia. It appears Dr. Alan Cat is assisted to the patient September 19, 2022 because of atheromatous emboli to bilateral lower extremities as well as deep venous thrombosis. CTA revealed abdominal aortic dissection. The patient is managed on low-dose aspirin and atorvastatin and cilostazol. He had heart valve surgery. Subsequent sounds like he had atheroemboli to his toes and required 2 toe amputations. He was on Plavix for a period of time but now is just on cilostazol. He had a prostate biopsy. Soon thereafter he took his stool test so he thinks it secondary to hemorrhoids or the intervention. He does have a history of a colon polyp with a colonoscopy 3 years ago and was told to get a follow-up exam at 3 years. He denies any abdominal pain. States that his inguinal hernia repair has remained solid on the right he is happy with it. He does have some numbness down the anterior thigh laterally on the right of undetermined etiology. ROS General General: No weight change, appetite, fatigue, colon cancer, breast cancer or weakness HEENT HEENT: No difficulty swallowing, eye injury, eye surgery, swollen glands or hoarseness Endo Endocrine: No thyroid disease, diabetes mellitus, thyroid cancer, Hair loss, heat intolerance or cold intolerance Skin Skin: No rash or changing moles Breast Breast: No left breast lump, right breast lump, nipple discharge, breast pain, abnormal mammogram, abnormal US or breast enlargement Musc Musculoskeletal: Yes back problems and arthritis; No rheumatoid arthritis, gout or joint pain Cardio Cardiovascular: Yes heart disease and high blood pressure; No murmur, pacemaker, atrial fibrillation, heart attack, heart stent, palpitations, shortness of breat with exertion or chest pain Psych Psychiatric: No depression, anxiety or hearing voices Resp Respiratory: No shortness of breath, No sleep apnea, No cough, No COPD, No asthma, No emphysema and No wheezing Gastro Gastrointestinal: No abdominal pain, No nausea or vomiting, No diarrhea, No constipation, No blood in stool, Yes acid reflux, Yes hemorrhoids, No ulcers, No gallbladder problem and No black,tarry stools Nicholas Hematologic: No blood thinners, No blood disorders, No bleeding, No anemia and No blood clots Neuro Neurologic: No system reviewed and no additional complaints, except as documented, No as per HPI, No abnormal gait, No abnormal hearing, No abnormal movements, No abnormal speech, No behavioral changes, No burning sensations, No confusion, No convulsions, No disequilibrium, No dizziness, No localized weakness, No frequent falls, No headache(s), No lack of coordination, No loss of vision, No memory loss, No numbness, No other visual disturbances, No radicular pain, No restless legs, No sensory deficit, No syncope, No tingling, No tremor(s), No weakness and No other Exam Const General: cooperative and comfortable Nutritional Appearance: overweight [facility] Head: normal to inspection Eyes General: appearance normal, both eyes and all related structures Neck Neck: normal visual inspection Chest Other: Increased AP diameter Resp Effort & Inspection: normal respiratory effort Auscultation: clear to auscultation bilaterally Cardio Rate: regular rate Rhythm: regular rhythm GI Other: Overweight. I cannot detect any internal organs Skin General: no rashes or lesions noted Neuro General: patient alert, patient awake and patient oriented x3 Psych Appearance: grossly normal Assessment and Plan Assessment and Plan (1) Occult blood positive stool: Status: Acute Plan: 67-year-old gentleman. Personal history colon polyp 3 years ago and colonoscopy. Heart valve replacement with atheroemboli causing toe amputations. Currently on cilostazol. We will have him hold that 3 days preprocedure. We will provide ampicillin 2 g IV on-call for the procedure. Plan to proceed with a colonoscopy with possible biopsy or polypectomy as indicated. He is aware of the technique, benefit, risk, alternatives. We will schedule and proceed at his discretion. I appreciate the opportunity of continued to assist with his surgical care. Copy: Dr Gregor Lassiter and Rocio Dhaliwal The patient's history and physical remain constant. He has no new complaints. He tolerated his bowel prep well. We will proceed with planned colonoscopy secondary to positive Cologuard and personal history of colon polyps. Keanu Fernández M.D., F.A.C.S.
[2023-10-14] MEDS: Ampicillin 2 GM in 0.9% Normal Saline (100mL MB+) 100 ML IV (06:25)
[2023-10-14 06:50] VITALS: BP 106/66; BP 124/84; PULSE 90; RESP 16; TEMP 36.6; O2SAT 91
--- NOTE | 2023-10-14 06:53 | OP.COLON_ITS ---
Patient Name: Jerald Finnegan Procedure Date: 10/14/2023 6:18 AM Date of : 1955 Age: 67 Procedure: Colonoscopy Indications: High risk colon cancer surveillance: Personal history of colonic polyps Providers: Keanu Fernández MD Medicines: See the Anesthesia note for documentation of the administered medications, Ampicillin 2 g IV Patient Profile: Last Colonoscopy: 3 years ago. Complications: No immediate complications. Procedure: Pre-Anesthesia Assessment: - Prior to the procedure, a History and Physical was performed, and patient medications and allergies were reviewed. The patient's tolerance of previous anesthesia was also reviewed. The risks and benefits of the procedure and the sedation options and risks were discussed with the patient. All questions were answered, and informed consent was obtained. Prior Anticoagulants: The patient has taken no anticoagulant or antiplatelet agents. After reviewing the risks and benefits, the patient was deemed in satisfactory condition to undergo the procedure. - Prior to the procedure, a History and Physical was performed, and patient medications and allergies were reviewed. The patient's tolerance of previous anesthesia was also reviewed. The risks and benefits of the procedure and the sedation options and risks were discussed with the patient. All questions were answered, and informed consent was obtained. Prior Anticoagulants: The patient has taken Pletal (cilostazol), last dose was 3 days prior to procedure. ASA Grade Assessment: II - A patient with mild systemic disease. After reviewing the risks and benefits, the patient was deemed in satisfactory condition to undergo the procedure. After I obtained informed consent, the scope was passed under direct vision. Throughout the procedure, the patient's blood pressure, pulse, and oxygen saturations were monitored continuously. The colonoscope was introduced through the anus and advanced to the cecum, identified by appendiceal orifice and ileocecal valve. The colonoscopy was performed without difficulty. The patient tolerated the procedure well. The quality of the bowel preparation was good. The ileocecal valve and the appendiceal orifice were photographed. Scope In: 6:32:21 AM Scope Withdrawal Time 0 hours 9 minutes 12 seconds Scope Out: 6:45:51 AM Total Procedure Duration Time 0 hours 13 minutes 30 seconds Findings: The digital rectal exam findings include non-thrombosed internal hemorrhoids and internal hemorrhoids (Grade I). Pertinent negatives include normal prostate (size, shape, and consistency). Scattered diverticula were found in the sigmoid colon and descending colon. Impression: - Non-thrombosed internal hemorrhoids and internal hemorrhoids (Grade I) found on digital rectal exam. - Diverticulosis in the sigmoid colon and in the descending colon. - No specimens collected. Recommendation: - Discharge patient to home. - Resume previous diet. - Continue present medications. - Repeat colonoscopy in 5 years for surveillance. Procedure Code(s): --- Professional --- 89539, Colonoscopy, flexible; diagnostic, including collection of specimen(s) by brushing or washing, when performed (separate procedure) Diagnosis Code(s): --- Professional --- Z86.010, Personal history of colonic polyps K64.0, First degree hemorrhoids K57.30, Diverticulosis of large intestine without perforation or abscess without bleeding CPT copyright 2021 [employer]. All rights reserved. The codes documented in this report are preliminary and upon tank car mechanic review may be revised to meet current compliance requirements. Keanu Fernández MD 10/14/2023 6:52:49 AM This report has been signed electronically. Number of Addenda: 0 Note Initiated On: 10/14/2023 6:18 AM
--- NOTE | 2023-10-14 06:53 | OP.CCLET_ITS ---
10/14/2023 Gregor Lassiter [address] [place] [address] Re : Colonoscopy procedure for Jerald Finnegan Dear Dr. Lassiter This procedure was performed on Saturday, October 14, 2023. My impressions and recommendations are as follows: Impressions : - Non-thrombosed internal hemorrhoids and internal hemorrhoids (Grade I) found on digital rectal exam. - Diverticulosis in the sigmoid colon and in the descending colon. - No specimens collected. Recommendations : - Discharge patient to home. - Resume previous diet. - Continue present medications. - Repeat colonoscopy in 5 years for surveillance. My findings are described in the full procedure note, which is enclosed. If I can be of further assistance, please feel free to contact me at Doctor phone number(s): Work: . Sincerely, Keanu Fernández MD 10/14/2023 6:52:49 AM This report has been signed electronically.
[2023-10-14 06:55] VITALS: BP 124/84; BP 96/63; PULSE 89; RESP 16; O2SAT 91
[2023-10-14 07:00] VITALS: BP 124/84; BP 96/63; PULSE 82; RESP 16; O2SAT 93
[2023-10-14 07:02] VITALS: BP 124/84; BP 96/63; PULSE 82; RESP 16; TEMP 36.5; O2SAT 93
[2023-10-14 07:22] VITALS: BP 124/84
== END 2023-10-14 07:40 | disposition home or self-care (01) ==
LOC: EN 05:18 → AC 05:19
PROVIDERS: PCP Family Medicine; Referring Provider Family Medicine; Visit Provider Surgery
PROC: 0DJD8ZZ Inspection of Lower Intestinal Tract, Via Natural or Artificial Opening Endoscopic (ICD-10-PCS; CPT 45378; principal; 2023-10-14 06:25)
DX: R19.5 Other fecal abnormalities (principal); K57.30 Diverticulosis of large intestine without perforation or abscess without bleeding; Z80.0 Family history of malignant neoplasm of digestive organs; K64.0 First degree hemorrhoids; E78.5 Hyperlipidemia, unspecified; Z86.010 Personal history of colon polyps; Z87.891 Personal history of nicotine dependence; Z79.899 Other long term (current) drug therapy; Z86.718 Personal history of other venous thrombosis and embolism; Z79.02 Long term (current) use of antithrombotics/antiplatelets; Z95.2 Presence of prosthetic heart valve; Z79.82 Long term (current) use of aspirin
CPT/HCPCS: 45378; J7120; J2405

== ENCOUNTER → 2023-11-24 | Outpatient (CLI) | payer MEDICARE, SELFPAY ==
--- NOTE | 2023-11-24 08:55 | AAVD_ITS ---
Reason For Study: Aortic Dissection Aorta Measurements Aorta Doppler Measurements Proximal aorta measures1.92cm x 1.94cm. in cross- Peak systolic flow velocities within the proximal sectional axis. aorta measure 61 cm/sec. Proximal aorta measures2.03cm. in longitudinal Peak systolic flow velocities within the mid aorta axis. measure 50 cm/sec. Mid aorta measures2.30cm x 2.35cm. in cross- Peak systolic flow velocities within the distal sectional axis. aorta measure 65 cm/sec. Mid aorta measures2.22cm. in longitudinal axis. Distal aorta measures2.67cm x 2.67cm. in cross- sectional axis. Distal aorta measures2.63cm. in longitudinal axis. Intimal flap noted distal Ao, known Ao Dissection. Left Iliac Artery Left iliac artery measures 1.30cm x 1.21 cm. in the cross-sectional axis. Left iliac artery measures 1.24 cm. in the longitudinal axis. Peak systolic velocity in the left iliac artery measures 88 cm/sec. Right Iliac Artery Right iliac artery measures 1.30cm x 1.22 cm. in the cross-sectional axis. Right iliac artery measures 1.12 cm. in the longitudinal axis. Peak systolic velocity in the right iliac artery measures 171 cm/sec. Procedure Aorta IVC Iliac vasculature or bypass grafts [id number]. Exam performed in department. VL/Abd Aortic/IVC Duplex scan Interpretation Summary Aorta patent with ectasia to 2.67 cm Right iliac artery patent with ectasia to 1.3 cm Left iliac artery patent with ectasia to 1.3 cm Ordering Physician: Alan Cat Referring Physician: Gregor Lassiter Performed By: Rosalee Bowles RDCS, RVT
--- OUTSIDE RECORDS SUMMARY | 2023-11-24 09:15 | XMS RPT_ITS | CCD ---
Author Name Unknown Address [address] [place] [address] [id number] [place] [address] Organization [facility] Care Team Providers Care Rail Grinder Name Role Phone DEVONTE GARCIA Attending Unavailable DEVONTE GARCIA Referring Unavailable DEVONTE GARCIA Attending Unavailable HARESH COOPER Referring Unavailable KELVIN PERSON Primary Care Unavailable BEV YOUNG Admitting Unavailable BEV YOUNG Attending Unavailable SEA THOMPSON Admitting Unavailable SEA THOMPSON Attending Unavailable WINNIE PIMENTEL Referring Unavailable DEVONTE GARCIA Attending Unavailable LANI CARD Attending Unavailable SEA THOMPSON Attending Unavailable Problems Active Problems Problem Classification Problem Date Documented Da te Episodic/Chronic Aortic; peripheral; and visceral artery aneurysms (2 sources) Dissection of unspecified site of aorta; Translations: [Dissection of unspecified site of aorta (HCC)] Onset: 12-10-2022 Chronic Heart valve disorders (2 sources) Nonrheumatic aortic (valve) stenosis; Translations: [Nonrheumatic aortic (valve) stenosis] Onset: 08-28-2022 Chronic Unclassified (2 sources) Cardiac Valve Problem; Translations: [Cardiac Valve Problem] Onset: 07-23-2022 Past or Other Problems Problem Classification Problem Date Documented Da te Episodic/Chronic Other lower respiratory disease (2 sources) Dyspnea, unspecified; Translations: [Dyspnea, unspecified] Onset: 08-09-2022 Episodic Results Test Name Value Interpretation Reference Range Facil ity Encounters Encounter Date Encounter Type Care Provider Facility Start: 12-10-2022 End: 12-11-2022 ambulatory HARESH COOPER [facility] Start: 08-28-2022 End: 08-29-2022 Evaluation and management of inpatient SEA THOMPSON [facility] Start: 08-09-2022 End: 11-19-2022 ambulatory DEVONTE [facility] Start: 08-09-2022 End: 08-09-2022 ambulatory WINNIE PIMENTEL [facility] Start: 08-09-2022 End: 08-09-2022 ambulatory DEVONTE [facility] Start: 07-23-2022 End: 07-23-2022 ambulatory LANI CARD [facility] Payers Date Payer Category Payer Medicare [id number] 2021 Unknown [id number] Clinical Notes 08-02-2022 to 12-11-2022 Note Date & Type Note Facility 12-11-2022 Note Discharge Summary Jose Manuel Briones : 1955 ADMIT DATE: 12/10/2022 DISCHARGE DATE: 12/11/2022 PRIMARY CARE PHYSICIAN: Kelvin Person VISIT STATUS: Admission CODE STATUS: Full Code DISCHARGE DIAGNOSES: Principal Problem: Aortic dissection (HCC) HOSPITAL COURSE: 67 yo M w/ pmh severe (mean gradient 55 mmHg) s/p TAVR (08/2022), LLE DVT anticoagulated with Eliquis, 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 12/10/22: transferred from OSH to MICU. Eval by vascular; no surgical intervention. 12/11/22: started on high intensity statin, pletal, coreg 6.25 mg bid. Continued home ASA and eliquis. BP remained control without any significant intervention. Coreg selected for afterload and beta blockade benefit. SIGNIFICANT DIAGNOSTIC STUDIES: Lipid panel: CONSULTANTS: Vascular Surgery MICU RECOMMENDED NEXT STEPS: Advised patient to follow up with PCP and Vascular Surgeon within 1 week of discharge. DISCHARGE MEDICATIONS: Medication List START taking these medications atorvastatin 40 MG tablet Commonly known as: Lipitor Take 1 tablet (40 mg) by mouth daily. carvedilol 6.25 MG tablet Commonly known as: Coreg Take 1 tablet (6.25 mg) by mouth in the morning and 1 tablet (6.25 mg) in the evening. Take with meals. cilostazol 50 MG tablet Commonly known as: Pletal Take 1 tablet (50 mg) by mouth 2 times daily. CONTINUE taking these medications aspirin 81 MG EC tablet Eliquis 5 MG tablet Generic drug: apixaban oxyCODONE-acetaminophen 5-325 MG tablet Commonly known as: Percocet STOP taking these medications tiZANidine 2 MG capsule Commonly known as: Zanaflex Where to Get Your Medications These medications were sent to [facility] [address] [place] [address] [place] [address] Hours: Friday to Friday 10 am to 6 pm atorvastatin 40 MG tablet carvedilol 6.25 MG tablet cilostazol 50 MG tablet DIET: Adult diet Regular; Low Fat/Low Chol/High Fiber/MARY ACTIVITY: No restriction. COMPLEXITY OF FOLLOW UP: [] Moderate Complexity: follow up within 7-14 calendar days (34474) [] Severe Complexity: follow up within 7 calendar days (39801) FOLLOW UP TESTING, PENDING RESULTS OR REFERRALS AT TRANSITIONAL CARE VISIT: [] Yes [] No PENDING STUDIES: none DISPOSITION: Home FACILITY/HOME CARE AGENCY NAME: Follow up with No follow-up provider specified. \ INSTRUCTIONS TO MA/SW: Please call patient on day after discharge (must document patient contacted within 2 business days of discharge). FOLLOW UP QUESTIONS FOR MA/SW: 1. Did you get medications filled and taking them as instructed from discharge? 2. Are you following your discharge instructions from your hospital stay? 3. Please confirm patient is scheduled for a follow up appointment within the above time frame. DISCHARGE TIME: SIGNED: Internal Medicine PGY-2 Pager#[phone] [facility] 12-11-2022 Note VASCULAR SURGERY PRO SANDRA NOTE - 12/11/2022 SUBJECTIVE Patient doing ok. Pain is well-controlled. Patient had several questions about his dissection maintenance. Discussed BP control is most important and activity as tolerated. All other questions were answered. OBJECTIVE VITALS: BP (!) 142/85 (BP Location: Left arm, Patient Position: Lying) Pulse 88 Temp 36.5 ?C (97.7 ?F) (Temporal) Resp 20 Ht 1.727 m (5' 8 ) Wt 82.8 kg (182 lb 8 oz) SpO2 95% BMI 27.75 kg/m? PHYSICAL EXAM: CONSTITUTIONAL: NAD, A&O X3. HEENT: No scleral icterus, PERRLA, EOMI CARD: RRR, no m/r/g PULM: Resp effort easy and unlabored ABDOMEN: soft, ND SKIN: Warm and dry. Several toes on BL feet w/ small areas of ischemia. Prior amputation of toe on the R foot. Palpable DP,PT BLE. Motor and sensation intact BL feet. INTAKE/OUTPUT: I/O last 3 completed shifts: In: - (0 mL/kg) Out: 500 (6 mL/kg) [Urine:500 (0.2 mL/kg/hr)] Weight: 82.8 kg Data Recent Labs 12/10/22204312/11/22 0637 WBC 7.6 5.9 HGB 13.0 12.8* HCT 39.7* 40.0 PLT 164 164 Recent Labs 12/11/22 0637 NA 138 K 3.9 CL 102 CO2 32* BUN 15 CREATININE 0.76 GLUCOSE 100 Recent Labs 12/11/22 0637 AST 42 ALT 26 BILITOT 1.0 ALKPHOS 90 ASSESSMENT AND PLAN 67 y.o. male w/ distal aortic dissection and possible embolism to BLE -No acute vascular surgery intervention required -Recommend to continue with asa, eliquis and statin -Recommend starting pletal -Recommend tight BP control with goal SBP<140 -Remainder of care per primary team -WDW Dr. Jean Carlos Harmon MD PGY-I [facility] 12-10-2022 Note I have personally pe rformed a [id number] diagnostic evaluation on this patient on date of service 12/10/22. History, labs, imaging studies, and electronic medical record have been reviewed by me. Please see resident's consult note Mr Briones is a 67 year old male with past medical history of severe aortic valve stenosis s/p TAVR 08/28/2022, history of LLE DVT and chronic foot wounds who presented to an outside facility for outpatient CTA and was advised to come to the hospital due to reported finding of distal aortic dissection with mural thrombus. He was directly admitted to [facility] under the vascular surgery group. On arrival, imaging was reviewed and it was noted that the findings were present on prior imaging and had actually improved since that time. Plan was for medical management, blood pressure control. As there were no plans for surgical intervention, MICU was contacted to assume care of this patient. On my evaluation the patient is awake, alert and oriented x3. Reports no prior history of hypertension, not on any home medications. Reports that since the time of his TAVR he has been experiencing multiple foot wounds, one requiring amputation of a digit on the right foot. He has also been found to have LLE DVT for which Eliquis was initiated. There was concern that he was showering emboli from the know mural thrombus at the distal aorta. The imaging he had performed today was in follow up to the wounds on his feet. He typically follows with Dr. Cat for vascular. Distal aortic mural thrombus Embolic lesions of bilateral feet Hypertension History of DVT LLE -Service was transferred to MICU -PRN labetalol ordered to maintain SBP <140 -Cardene gtt ordered if PRN pushes ineffective -Continue home asa, Eliquis -Follow vascular plans -Patient can likely be transferred out of ICU tomorrow if BP remains controlled Total critical care time for this patient with life-threatening unstable organ failure, including direct patient contact, management of life support systems, review of data including imaging and labs, and discussions with other team members and physicians at least 45 minutes so far today, excluding procedures. [facility] 12-10-2022 Note Internal Medicine: M ICU Initial History and Physical Name: Jose Manuel Briones : 1955(67 y.o.) Date: 12/10/22 Attending: Dr. Aruna Salinas Subjective: Chief Complaint: Type B aortic dissection HPI: Jose Manuel Briones 67-year-old male past medical history significant for severe aortic stenosis (status post TAVR-08/2022), right fourth digit amputation, recent DVT on on anticoagulation with Eliquis was transferred to [facility] for management of type B aortic dissection. Patient presented from [facility] after imaging that showed an aortic dissection. Patient is currently asymptomatic, denies chest pain, chest pressure, fatigue, weakness, abdominal pain, lower extremity pain and weakness. He endorsed after having his TAVR procedure he started having problems with lower extremity DVTs. Patient believes the procedure is the reason why he is having this problem. On arrival patient was afebrile, HR 93, RR 18, BP 165/99, SPO2 94% on room air. Initial CBC was only significant for RBCs 4.37, hematocrit 39.7, and RDW of 15.2. EKG showed sinus rhythm. Upon further evaluation of imaging at [facility] it was determined that patient's aortic dissection was present on previous imaging and not acute. Vascular surgery evaluated patient and recommended tight blood pressure control with goal SBP less than 140. Past Medical History: Diagnosis Date Nonrheumatic aortic valve stenosis 07/18/2022 Past Surgical History: Procedure Laterality Date CARDIAC CATHETERIZATION Left 06/17/2022 Mild CAD, severe mean AV 55 CARDIAC CATHETERIZATION N/A 08/28/2022 Performed by Sea Thompson MD at [facility] OR CT HEART CORONARY ANGIOGRAM - WITH PROVISIONAL FFR-CT 08/09/2022 CT ANGIOGRAM TAVR 08/09/[address] [facility] [address] IMAGING CVHX ECHOCARDIOGRAM TRANSESOPHAGEAL 06/17/2022 EF 65%, severe 38/62 HERNIA REPAIR Right 2021 HIP ARTHROPLASTY remote UMBILICAL HERNIA REPAIR 2016 Family History Problem Relation Name Age of Onset COPD Mother Lung cancer Father Sudden Brother 56 Social History Socioeconomic History Marital status: Spouse name: Not on file Number of children: Not on file Years of education: Not on file Highest education level: Not on file Occupational History Not on file Tobacco Use Smoking status: Former Types: Cigarettes Smokeless tobacco: Never Vaping Use Vaping Use: Never used Substance and Sexual Activity Alcohol use: Never Drug use: Never Sexual activity: Not on file Other Topics Concern Not on file Social History Narrative Not on file Social Determinants of Health Financial Resource Strain: Not on file Food Insecurity: Not on file Transportation Needs: No Transportation Needs Lack of Transportation (Medical): No Lack of Transportation (Non-Medical): No Physical Activity: Not on file Stress: Not on file Social Connections: Not on file Intimate Partner Violence: Not At Risk Fear of Current or Ex-Partner: No Emotionally Abused: No Physically Abused: No Sexually Abused: No Housing Stability: Unknown Unable to Pay for Housing in the Last Year: No Number of Places Lived in the Last Year: Not on file Unstable Housing in the Last Year: No No Known Allergies Prior to Admission medications Medication Sig Start Date End Date Taking? Authorizing Provider Eliquis 5 MG tablet Take 5 mg by mouth in the morning and 5 mg in the evening. 09/09/22 Yes Historical Provider, aspirin 81 MG EC tablet Take 81 mg by mouth Once. Historical Provider, oxyCODONE-acetaminophen (Percocet) 5-325 MG tablet 1 tablet 2 times daily as needed for severe pain (7-10). Historical Provider, tiZANidine (Zanaflex) 2 MG capsule Take 1 capsule (2 mg) by mouth every 8 hours as needed for muscle spasms. Patient not taking: Reported on 12/10/2022 09/02/22 09/02/23 Winnie Pimentel, BUS DRIVER SUPERVISOR - QC TECH Objective: Oxygen Delivery: VITALS: BP (!) 150/83 Pulse 93 Temp 36.7 ?C (98.1 ?F) (Temporal) Resp 22 Ht 1.727 m (5' 8 ) Wt 83.3 kg (183 lb 10.3 oz) SpO2 93% BMI 27.92 kg/m? CURRENT PULSE OXIMETRY: SpO2: 93 % Review of Systems Constitutional: Positive for activity change. Negative for appetite change, chills, fatigue and fever. Eyes: Negative for photophobia and visual disturbance. Respiratory: Negative for cough, chest tightness, shortness of breath and wheezing. Cardiovascular: Negative for chest pain, palpitations and leg swelling. Gastrointestinal: Negative for abdominal pain, constipation, diarrhea, nausea and vomiting. Genitourinary: Negative for decreased urine volume, difficulty urinating, dysuria and urgency. Musculoskeletal: Discoloration of toes and lower extremity DVT Skin: Positive for color change. Neurological: Negative for dizziness, syncope, weakness, light-headedness and headaches. Psychiatric/Behavioral: Negative for confusion and decreased concentration. Constitutional: General Appearance [x]WDWN [ (more content not included)... [facility] 09-17-2022 Note Plan per previous no kenn is to continue Eliquis as prescribed. Can we please send copy of TAVR discharge summary to PCP. We also obtained the PETRA report from [place] which we can send to PCP. [facility] 08-29-2022 Note Attestation signed by Sea Thompson MD at 08/29/2022 3:56 PM I, Dr. Thompson, saw and evaluated the patient. I personally obtained the zaldivar and critical portions of the history and physical exam. I reviewed the chart and discussed the patient with the Nurse Practitioner. I agree with the Nurse Practitioner's medical decision making. Hospital Summary: Patient was admitted for elective transcatheter aortic valve replacement. he did well with this procedure. he is now POD1 s/p TF TAVR. he is back to his baseline activity with no symptoms. he will be discharged today on his current medication list. he will follow up in valve clinic in 1-2 weeks. Name: Jose Manuel Briones Date of : 1955 Date of Admission: 08/28/2022 Date of Discharge: 08/29/2022 Admitting physician: Sea Thompson MD Discharge Attending: EDY John CNP, Primary Care Physician: Kelvin Person MD Reason for Admission: Severe Symptomatic Aortic Stenosis Consultants: cardiac rehab HOSPITAL ADMISSION PROBLEM LIST: Patient Active Problem List Diagnosis Nonrheumatic aortic valve stenosis Severe aortic stenosis Review of Systems Review of Systems Constitutional: Negative for chills and fever. Eyes: Negative for visual disturbance. Respiratory: Negative for cough and shortness of breath. Cardiovascular: Negative for chest pain, palpitations and leg swelling. Gastrointestinal: Negative for abdominal pain, blood in stool and vomiting. Genitourinary: Negative for difficulty urinating and hematuria. Musculoskeletal: Positive for myalgias (muscle cramps in lou upper calves. no pain, numbness, tingling or cold sensation to lou feet). Neurological: Negative for dizziness and syncope. Psychiatric/Behavioral: Negative for confusion. Physical Exam Physical Exam Constitutional: Appearance: Normal appearance. HENT: Head: Normocephalic. Eyes: General: No scleral icterus. Right eye: No discharge. Left eye: No discharge. Cardiovascular: Rate and Rhythm: Normal rate and regular rhythm. Pulses: Normal pulses. Radial pulses are 2+ on the right side. Dorsalis pedis pulses are 2+ on the right side and 2+ on the left side. Posterior tibial pulses are 2+ on the right side and 2+ on the left side. Heart sounds: Normal heart sounds. No murmur heard. Comments: R radial cath site without hematoma, ecchymosis or oozing. R hand with brisk capillary refill R femoral cath site without hematoma, ecchymosis, oozing or bruit Bilateral feet pink, warm with no erythema or ecchymosis Pulmonary: Effort: Pulmonary effort is normal. Breath sounds: Normal breath sounds. Abdominal: General: Abdomen is flat. Palpations: Abdomen is soft. Musculoskeletal: General: Normal range of motion. Cervical back: Normal range of motion. Right lower leg: No edema. Left lower leg: No edema. Skin: General: Skin is warm and dry. Capillary Refill: Capillary refill takes less than 2 seconds. Neurological: Mental Status: He is alert and oriented to person, place, and time. Psychiatric: Mood and Affect: Mood normal. Procedures: Transfemoral transcatheter AVR with 23 mm Bradford S3 valve under moderate sedation Transthoracic echocardiogram HOSPITAL COURSE : The patient was admitted to the hospital for elective TAVR on 08/28/22 . A 23 Bradford S3 valve was implanted. The patient returned to [facility] for recovery. Vital signs and labs were stable. There were no groin complications. The patient was ambulatory the evening of the procedure. Post procedure echocardiogram demonstrated : Aortic Valve: Not well visualized. [place] Bradford 3 Ultra transthoracic bioprosthetic valve that is well-seated with a size of 23 mm. Moderate annular calcification. No significant stenosis. Pre TAVR: AV peak/mean gradients 60/20mmHg, VIMAL 1.0 cm2. Post TAVR LVOT 2.2cm, LVOT susie 1.07 m/s, AV peak susie 1.3 m/s, AV peak/mean gradients 6/3 mmHg, VIMAL 3.4 cm2 Left Ventricle: Left ventricle size is normal. EF by 2D Simpsons Biplane is 66%. Normal wall motion. Right Ventricle: Right ventricle size is normal. Normal systolic function. Technically difficult study. Complete echo to follow Patient education including SBE prophylaxis, activity, access site care, follow up appointments, and medications was provided. The patient verbalized understanding, questions were answered. The patient was discharged home in good condition. Referral to cardiac rehabilitation has been recommended and discussed with the patient prior to discharge. Referral has been made to the [facility]. Last Labs: Lab Results Component Value Date WBC 7.8 08/29/2022 HGB 13.9 08/29/2022 HCT 40.6 08/29/2022 MCV 90.6 (more content not included)... [facility] 08-28-2022 Note Patient: Jose Manuel montenegro Procedure Summary Date: 08/28/22 Room / Location: [facility] Operating Room Anesthesia Start: 723 Anesthesia Stop: 924 Procedures: TAVR/TTE TRANSCATHETER AORTIC VALVE REPLACEMENT (TAVR) - OR (Chest) Diagnosis: Aortic stenosis (Aortic stenosis [I35.0]) Surgeons: Sea Thompson MD; Jean Carlos Vela MD Responsible Provider: Walt Ventura MD Anesthesia Type: TIVA, MAC ASA Status: 4 Anesthesia Type: TIVA, MAC Vitals Value Taken Time BP 134/93 08/28/22923 Temp 36.1 ?C (97 ?F) 08/28/22923 Pulse 87 08/28/22923 Resp 16 08/28/22923 SpO2 95 % 08/28/22923 Anesthesia Post Evaluation Patient location during evaluation: ICU Patient participation: complete - patient participated Level of consciousness: awake and alert Pain management: satisfactory to patient Airway patency: patent Dental Injury: no Cardiovascular status: acceptable, blood pressure returned to baseline and hemodynamically stable Respiratory status: acceptable and spontaneous ventilation Hydration status: euvolemic Nausea/Vomiting: controlled No notable events documented. Patient can be discharged once all PACU criteria has been met. [facility] 08-28-2022 Note Patient: Jose Manuel montenegro Procedure Summary Date: 08/28/22 Room / Location: [facility] Operating Room Anesthesia Start: 723 Anesthesia Stop: 924 Procedures: TAVR/TTE TRANSCATHETER AORTIC VALVE REPLACEMENT (TAVR) - OR (Chest) Diagnosis: Aortic stenosis (Aortic stenosis [I35.0]) Surgeons: Sea Thompson MD; Jean Carlos Vela MD Responsible Provider: Walt Ventura MD Anesthesia Type: TIVA, MAC ASA Status: 4 Anesthesia Type: TIVA, MAC Vitals Value Taken Time BP 134/93 08/28/22923 Temp 36.1 ?C (97 ?F) 08/28/22923 Pulse 87 08/28/22923 Resp 16 08/28/22923 SpO2 95 % 08/28/22923 Anesthesia Post Evaluation Patient location during evaluation: ICU Patient participation: complete - patient participated Level of consciousness: awake and alert Pain management: satisfactory to patient Multimodal analgesia pain management approach Airway patency: patent Two or more strategies used to mitigate risk of obstructive sleep apnea Cardiovascular status: acceptable and hemodynamically stable Respiratory status: acceptable Hydration status: acceptable No notable events documented. MIPS #[id number] PONV Patient did not receive an inhalational anesthetic ([id number] MIPS # 424 Perioperative Temperature Management Anesthesia time was 60 minutes or longer (4255F) Anesthesai administered was General (inhalational or TIVA) or Neuraxial block At least one body temperature greater than 95.8F/35.5C achieved within the 30 mins immediately prior to or the 15 minutes immediately following anesthesia end time MIPS #477 Multimodal Pain Management Not emergent case Patientw was administered multimodal pain management (two or more drugs and/or interventions excluding systemic opioids) in the periopeartive period occurring at some time between 6 hours prior to anesthesia start time until discharged from PACU ([id number]) [facility] #404 Anesthesiology Smoking Abstinence [facility] 404 I completed my handoff to the receiving clinician during which we: 1. Identified the patient 2. Identified the responsible provider 3. Reviewed the pertinent medical history 4. Discussed the surgical course 5. Reviewed intra-op anesthesia management and issues during anesthesia 6. Set expectations for post-procedure period 7. Allowed opportunity for questions and acknowledgement of understanding. [facility] 08-27-2022 Note Attestation signed by Sea Thompson MD at 08/29/2022 6:42 AM I, Dr. Thompson, saw and evaluated the patient. I personally obtained the zaldivar and critical portions of the history and physical exam. I reviewed the chart and discussed the patient with the Nurse Practitioner. I agree with the Nurse Practitioner's medical decision making. I spoke with Jose Manuel Briones this morning. he tells me that nothing has changed clinically since our last office visit. We will proceed with the planned procedure. EDY John CNP Nurse Practitioner Adult Health Nonrheumatic aortic valve stenosis Dx Pre-op Exam Reason for Visit Progress Notes EDY John CNP (Nurse Practitioner) Cardiology Expand All Collapse All [facility] [address] [facility] [address] Dept: [phone] Dept Loc: [phone] Visit type: Established patient Reason for Visit: Pre-op Exam (H & P prior to TAVR) Assessment and Plan 1. Nonrheumatic aortic valve stenosis Assessment & Plan: Plan for TAVR on 08/28/22. Pre procedure teaching completed today with patient and . Written instructions reviewed and provided to patient. Will have pre procedure CTA, CXR and labs done today. Jose Manuel Briones participated in a shared decision making process regarding treatment of aortic stenosis. Jose Manuel Briones was made aware of the techniques for aortic valve implantation, the risks and benefits for both forms of AVR therapy, medical management or a palliative care strategy, and the multidisciplinary team's recommendations to facilitate achieving the best outcome given specific risk, characteristics, and goals of care. Jose Manuel Briones was engaged in the decision and expressed understanding and acceptance of the plan. Follow up for to be arranged post TAVR. Subjective HPI Jose Manuel Briones is a 66 yo male known to Dr. García with no significant cardiac history who was evaluated for a incidental murmur. Echo shoed EF 70%, pk/mn 95/54, peak velocity 4.8 and VIMAL 0.9 cm2. Heart cath shoed nonobstructive CAD with mean aortic gradient 55 mmHg. He was evaluated in our Valve [facility] where he reported progressive activity intolerance. Plan is to pursue TAVR. He presents today for an updated H & P for his upcoming TAVR. He denies angina, SOB, orthopnea, dizziness or edema. Denies presyncope/syncope. 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 Review of Systems Constitutional: Negative for chills and fever. Eyes: Negative for visual disturbance. Respiratory: Negative for cough and shortness of breath. Cardiovascular: Negative for chest pain, palpitations and leg swelling. Gastrointestinal: Negative for abdominal pain, blood in stool and vomiting. Genitourinary: Negative for hematuria. Neurological: Negative for dizziness and syncope. Psychiatric/Behavioral: Negative for confusion. No Known Allergies Medications Prior to Visit No outpatient medications prior to visit. No facility-administered medications prior to visit. Medical History Past Medical History: Diagnosis Date Nonrheumatic aortic valve stenosis 07/18/2022 Social History Tobacco Use Smoking status: Former Types: Cigarettes Smokeless tobacco: Never Substance Use Topics Alcohol use: Never Surgical History Past Surgical History: Procedure Laterality Date CARDIAC CATHETERIZATION Left 06/17/2022 Mild CAD, severe mean AV 55 CVHX ECHOCARDIOGRAM TRANSESOPHAGEAL 06/17/2022 EF 65%, severe 38/62 HERNIA REPAIR Right 2021 HIP ARTHROPLASTY remote UMBILICAL HERNIA REPAIR 2016 Family History Family History Problem Relation Name Age of Onset COPD Mother Lung cancer Father Sudden Brother 56 Objective Vitals Vitals: 08/09/22 1016 BP: (!) 142/82 BP Location: Left arm Patient Position: Sitting BP Cuff Size: Adult Pulse: 77 SpO2: 95% Weight: 169 lb 12.8 oz (77 kg) Height: 5' 7 (1.702 m) Body mass index is 26.59 kg/m?. Physical Exam Constitutional: Appearance: Normal appearance. HENT: Head: Normocephalic. Eyes: General: No scleral icterus. Right eye: No discharge. Left eye: No discharge. Cardiovascular: Rate and Rhythm: Normal rate and regular rhythm. Pulses: Normal pulses. Dorsalis pedis pulses are 2+ on the right side and 2+ on the left side. Posterior tibial pulses are 2+ on the right side and 2+ on the left side. Heart sounds: Murmur heard. Pulmonary: Effort: Pulmonary effort is normal. Breath sounds: Normal breath sounds. Abdominal: General: Abdomen is flat. Palpations: Abdomen is soft. Musculoskeletal: General: Normal range of motion. Cervical back: Normal range of motion. Right lower leg: No edema. Left lower leg: No edema. Skin: General: Skin is warm and dry. Capillary (more content not included)... [facility] 08-27-2022 Note Attestation signed by Sea Thompson MD at 08/29/2022 6:42 AM I, Dr. Thompson, saw and evaluated the patient. I personally obtained the zaldivar and critical portions of the history and physical exam. I reviewed the chart and discussed the patient with the Nurse Practitioner. I agree with the Nurse Practitioner's medical decision making. I spoke with Jose Manuel Briones this morning. he tells me that nothing has changed clinically since our last office visit. We will proceed with the planned procedure. EDY John CNP Nurse Practitioner Adult Health Nonrheumatic aortic valve stenosis Dx Pre-op Exam Reason for Visit Progress Notes EDY John CNP (Nurse Practitioner) Cardiology Expand All Collapse All [facility] [address] [facility] [address] Dept: [phone] Dept Loc: [phone] Visit type: Established patient Reason for Visit: Pre-op Exam (H & P prior to TAVR) Assessment and Plan 1. Nonrheumatic aortic valve stenosis Assessment & Plan: Plan for TAVR on 08/28/22. Pre procedure teaching completed today with patient and . Written instructions reviewed and provided to patient. Will have pre procedure CTA, CXR and labs done today. Jose Manuel Briones participated in a shared decision making process regarding treatment of aortic stenosis. Jose Manuel Briones was made aware of the techniques for aortic valve implantation, the risks and benefits for both forms of AVR therapy, medical management or a palliative care strategy, and the multidisciplinary team's recommendations to facilitate achieving the best outcome given specific risk, characteristics, and goals of care. Jose Manuel Briones was engaged in the decision and expressed understanding and acceptance of the plan. Follow up for to be arranged post TAVR. Subjective HPI Jose Manuel Briones is a 66 yo male known to Dr. García with no significant cardiac history who was evaluated for a incidental murmur. Echo shoed EF 70%, pk/mn 95/54, peak velocity 4.8 and VIMAL 0.9 cm2. Heart cath shoed nonobstructive CAD with mean aortic gradient 55 mmHg. He was evaluated in our Valve Clinic where he reported progressive activity intolerance. Plan is to pursue TAVR. He presents today for an updated H & P for his upcoming TAVR. He denies angina, SOB, orthopnea, dizziness or edema. Denies presyncope/syncope. 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 Review of Systems Constitutional: Negative for chills and fever. Eyes: Negative for visual disturbance. Respiratory: Negative for cough and shortness of breath. Cardiovascular: Negative for chest pain, palpitations and leg swelling. Gastrointestinal: Negative for abdominal pain, blood in stool and vomiting. Genitourinary: Negative for hematuria. Neurological: Negative for dizziness and syncope. Psychiatric/Behavioral: Negative for confusion. No Known Allergies Medications Prior to Visit No outpatient medications prior to visit. No facility-administered medications prior to visit. Medical History Past Medical History: Diagnosis Date Nonrheumatic aortic valve stenosis 07/18/2022 Social History Tobacco Use Smoking status: Former Types: Cigarettes Smokeless tobacco: Never Substance Use Topics Alcohol use: Never Surgical History Past Surgical History: Procedure Laterality Date CARDIAC CATHETERIZATION Left 06/17/2022 Mild CAD, severe mean AV 55 CVHX ECHOCARDIOGRAM TRANSESOPHAGEAL 06/17/2022 EF 65%, severe 38/62 HERNIA REPAIR Right 2021 HIP ARTHROPLASTY remote UMBILICAL HERNIA REPAIR 2016 Family History Family History Problem Relation Name Age of Onset COPD Mother Lung cancer Father Sudden Brother 56 Objective Vitals Vitals: 08/09/22 1016 BP: (!) 142/82 BP Location: Left arm Patient Position: Sitting BP Cuff Size: Adult Pulse: 77 SpO2: 95% Weight: 169 lb 12.8 oz (77 kg) Height: 5' 7 (1.702 m) Body mass index is 26.59 kg/m?. Physical Exam Constitutional: Appearance: Normal appearance. HENT: Head: Normocephalic. Eyes: General: No scleral icterus. Right eye: No discharge. Left eye: No discharge. Cardiovascular: Rate and Rhythm: Normal rate and regular rhythm. Pulses: Normal pulses. Dorsalis pedis pulses are 2+ on the right side and 2+ on the left side. Posterior tibial pulses are 2+ on the right side and 2+ on the left side. Heart sounds: Murmur heard. Pulmonary: Effort: Pulmonary effort is normal. Breath sounds: Normal breath sounds. Abdominal: General: Abdomen is flat. Palpations: Abdomen is soft. Musculoskeletal: General: Normal range of motion. Cervical back: Normal range of motion. Right lower leg: No edema. Left lower leg: No edema. Skin: General: Skin is warm and dry. Capillary (more content not included)... [facility] 08-22-2022 Note Patient: Jose Manuel montenegro Procedure Information Date/Time: 08/28/22 0730 Procedures: TAVR/TTE TRANSCATHETER AORTIC VALVE REPLACEMENT (TAVR) - OR (Chest) Location: [facility] Operating Room Surgeons: Sea Thompson MD; Jean Carlos Vela MD Relevant Problems Cardio (+) Nonrheumatic aortic valve stenosis (+) Severe aortic stenosis VIMAL 1 cm^2 EF 65% Past Medical History: Past Medical History: 07/18/2022: Nonrheumatic aortic valve stenosis Past Surgical History: Past Surgical History: 06/17/2022: CARDIAC CATHETERIZATION; Left Comment: Mild CAD, severe mean AV 55 08/09/2022: CT HEART CORONARY ANGIOGRAM - WITH PROVISIONAL FFR-CT Comment: CT ANGIOGRAM TAVR 08/09/[address] IMAGING 06/17/2022: CVHX ECHOCARDIOGRAM TRANSESOPHAGEAL Comment: EF 65%, severe 38/62 202: HERNIA REPAIR; Right No date: HIP ARTHROPLASTY Comment: remote 2016: UMBILICAL HERNIA REPAIR Social History: TOBACCO: reports that he has quit smoking. His smoking use included cigarettes. He has never used smokeless tobacco. ETOH: reports no history of alcohol use. Social History Substance and Sexual Activity Drug Use Never Family History: Family History Problem Relation Name Age of Onset ? COPD Mother ? Lung cancer Father ? Sudden Brother 56 Screening: unknown Clinical information reviewed: Physical Exam Airway Mallampati: III TM distance: >3 FB Mouth Open: normalendotracheal tube not in place Cardiovascular Dental (+) upper dentures, lower dentures Pulmonary Abdominal Anesthesia Plan ASA 4 TIVA and MAC (Chart info) The patient is not a current smoker. Anesthetic plan and risks discussed with patient. patient is NPO OSVALDO Screening Labs: Lab Results Component Value Date WBC 6.8 08/09/2022 HGB 14.1 08/09/2022 HCT 42.0 08/09/2022 MCV 91.5 08/09/2022 PLT 211 08/09/2022 Lab Results Component Value Date NA 137 08/09/2022 K 4.2 08/09/2022 CL 101 08/09/2022 CO2 31 (H) 08/09/2022 BUN 12 08/09/2022 CREATININE 0.72 08/09/2022 GLUCOSE 82 08/09/2022 CALCIUM 9.1 08/09/2022 PROT 8.5 (H) 08/09/2022 ALKPHOS 115 08/09/2022 AST 36 08/09/2022 ALT 23 08/09/2022 EGFR >90.0 08/09/2022 Echo showed EF 70%, pk/mn 95/54, peak velocity 4.8 and VIMAL 0.9 cm2. Heart cath showed nonobstructive CAD with mean aortic gradient 55 mmHg CXR 08/09/22 PA and lateral views of the chest were obtained. The heart is normal in size. The mediastinal silhouette is normal. Chronic interstitial changes are present. There is a calcified granuloma of the right mid to upper lung field. There is no pleural thickening. Arthritic changes of the spine and shoulders are present. ? IMPRESSION: Negative chest. CTA 08/09/22 no pleural effusion or pneumothorax. No suspicious pulmonary nodules are identified. There is a calcified granuloma within the right upper lobe. No lymphadenopathy is seen within the chest. ? The visualized portions of the liver, gallbladder, spleen, pancreas, adrenal glands, and left kidney appear within normal limits. There is a small nonobstructive right renal calculus. There is no lymphadenopathy within the abdomen or pelvis. The urinary bladder is not well seen due to streak artifact from bilateral hip arthroplasties. ? Large and small bowel loops do not appear abnormally dilated or thickened. There is diverticulosis of the distal colon. There is no free fluid or free air within the abdomen or pelvis. ? No lytic or blastic lesions are seen on the bone windows. Bilateral total hip arthroplasties are noted ? Cardiac Chambers: The pericardium is unremarkable. Mild concentric hypertrophy of the left ventricle is noted. The right ventricle is normal in size. The left atrium is mildly dilated. The left atrial appendage is normal in appearance. The right atrium is normal in size. ? Coronary Arteries: The coronaries have normal origins. There is a pattern of right coronary dominance. There is evidence of coronary atherosclerosis. The present study was not optimized for evaluation of the coronary arteries, however there appears to be significant stenosis within the proximal LAD from mixed calcified and noncalcified plaque. ? Mitral Valve: The mitral annulus has moderate calcification, without significant extension into the LVOT. The anterior mitral leaflet is free of the LVOT during systole. Aortic Valve: The aortic valve is tricuspid and heavily calcified. Aortic valve area by planimetry at 35% R-R Interval: 0.9 cm2 ? Predicted deployment angle (3-cusp view): JAYRO 5, CAU 7 ? Aortic Annulus: Dimensions: 2.6 x 2.0 cm Area: 3.9 cm2 Perimeter: 71 mm Left coronary height: 14 mm Right coronary height: 18 mm ? Aorta and Iliofemoral System Note: All vascular measurements are minimal luminal diameters using a centerline technique. ? Aortic Root and Thoracic Aorta: Sinuses: 3.0 x 2.9 cm S (more content not included)... [facility] 08-02-2022 Note Dx: Procedure: TAVR/TTE Date/Time: 08/28/22 at 7:30AM Surgeon: DONI/EFRAIN Location: [facility] Admission: I-TBA Anesthesia: MAC Case # [id number] [employer] auth pending 08/13/22 [employer] auth # [id number] approved on 08/20, updated on website and spoke with Beth at [facility] Summary Purpose Family History No Family History Records FoundNo Family History Records Found Advance Directives No Advanced Directives Records FoundNo Advanced Directives Records Found Additional Source Comments (unrecognized sect ion and content) No Status Records FoundNo Status Records Found INFORMATION SOURCE (unrecogn ized section and content) DATE CREATED AUTHOR AUTHOR'S ORGANIZ ATION 12/12/2022 [facility] FOR RECORDS PERTAINING TO PATIENTS WHO ARE OR HAVE BEEN ENROLLED IN A CHEMICAL DEPENDENCY/SUBSTANCEABUSE PROGRAM, SOME INFORMATION MAY BE OMITTED. This clinical summary was aggregated from multiple sources. Caution should be exercised in using it in the provision of clinical care. This summary normalizes information from multiple sources, and as a consequence, information in this document may materially change the coding, format and clinical context of patient data. In addition, data may be omitted in some cases. CLINICAL DECISIONS SHOULD BE BASED ON THE PRIMARY CLINICAL RECORDS. [facility] [employer] provides no warranty or guarantee of the accuracy or completeness of information in this document.
== END | disposition home or self-care (01) ==
PROVIDERS: PCP Family Medicine; Referring Provider Surgery Trauma Surgery; Visit Provider Surgery Trauma Surgery
DX: I71.02 Dissection of abdominal aorta (principal)
CPT/HCPCS: 93978

== ENCOUNTER → 2024-02-03 | Outpatient (CLI) | payer MEDICARE, SELFPAY ==
[2024-02-03 18:38] LABS: Absolute Lymphocyte Count 2.15 X10^3/uL (0.83-4.51); Absolute Neutrophil Count 4.3 X10^3/uL (2.0-7.7); Basophil# 0.06 X10^3/uL; Basophil% 0.8 % (0-1); Eosinophils% 1.4 % (0-5); Hematocrit 40.5 % (40-54); Hemoglobin 12.5 g/dL (13.0-16.5); Lymphocyte # 2.15 X10^3/ul (0.83-4.51); Lymphocyte % 29.4 % (19-41); Mean Corp Hgb Conc 30.9 g/dL (32-36); Mean Corpuscular Volume 90.8 fL (80-94); Monocyte# 0.67 X10^3/uL; Monocyte% 9.2 % (0-10); NRBC Flagged by Analyzer 0 % (0-5); Neutrophil % 58.8 % (47-70); Platelet Count 163 K/mm3 (150-450); RBC Distribution Width CV 14.4 % (11.6-14.6); RBC Distribution Width SD 47.6 fl (35.1-43.9); Red Blood Count 4.46 M/mm3 (4.6-6.2); White Blood Count 7.3 K/mm3 (4.4-11.0)
[2024-02-03 19:28] LABS: Vitamin B12 359 pg/mL (211-911)
[2024-02-03 19:49] LABS: ALB/GLOB Ratio 0.9 RATIO (0.9-2.4); AST(SGOT) 47 U/L (15-37); Alanine Aminotransfer ALT/SGPT 29 U/L (16-61); Albumin, Serum 3.7 g/dL (3.2-5.0); Alkaline Phosphatase 103 U/L (45-117); Anion Gap 5 (5-15); BUN 12 mg/dL (7-18); BUN/Creat Ratio 13.8 RATIO (10-20); Calcium,Total 8.8 mg/dL (8.5-10.1); Chloride 103 mmol/L (98-107); Cholesterol 168 mg/dL (200); Creatinine, Serum 0.87 mg/dL (0.70-1.30); EST Glomerular Filtration Rate 93 mL/min (>60); Est Glom Filt Rate - Afr Amer 113 mL/min (>60); Ferritin 34 ng/mL (26-388); Glucose 123 mg/dL (74-106); High Density Lipoprotein 32 mg/dL; Iron 61 ug/dL (65-175); Iron Binding Capacity,Total 306 ug/dL (250-450); Potassium 3.3 mmol/L (3.5-5.1); Protein, Total 7.7 g/dL (6.4-8.2); Sodium Level 137 mmol/L (136-145); Thyroid Stim Hormone (TSH) 1.14 uIU/mL (0.358-3.74); Triglycerides 246 mg/dL; Very Low Density Lipoprotein 49 mg/dL (5-40)
== END | disposition home or self-care (01) ==
LOC: MTLAB 16:44
PROVIDERS: PCP Family Medicine; Referring Provider Family Medicine; Visit Provider Family Medicine
DX: E78.5 Hyperlipidemia, unspecified (principal); D64.9 Anemia, unspecified; R73.09 Other abnormal glucose
CPT/HCPCS: 36415; 80053; 80061; 82607; 82728; 82746; 83036; 83540; 83550; 84443; 85025

== ENCOUNTER → 2024-08-18 | Outpatient (CLI) | payer MEDICARE, SELFPAY | END | disposition home or self-care (01) | LOC: MFPLAB 13:43 | PROVIDERS: PCP Family Medicine; Visit Provider Family Medicine | DX: R97.20 Elevated prostate specific antigen [PSA] (principal) | CPT/HCPCS: 36415; 84153 ==

== ENCOUNTER → 2024-12-08 | Outpatient (CLI) | payer MEDICARE, SELFPAY ==
--- NOTE | 2024-12-08 07:49 | AAVD_ITS ---
Reason For Study Reason For Study: Aortic dissection Aorta Measurements Aorta Doppler Measurements Proximal aorta measures1.85 x 1.76cm. in cross-sectional Peak systolic flow velocities within the proximal aorta axis. measure 90.4 cm/sec. Proximal aorta measures1.79cm. in longitudinal axis. Peak systolic flow velocities within the mid aorta measure Mid aorta measures2.31 x 2.33cm. in cross-sectional axis. 66.9 cm/sec. Mid aorta measures2.33cm. in longitudinal axis. Peak systolic flow velocities within the distal aorta Distal aorta measures2.74 x 2.77cm. in cross-sectional axis.measure 32.4 cm/sec. Distal aorta measures2.88cm. in longitudinal axis. Intimal flaps noted distal aorta, know aortic dissection. Abnormal waveform noted in distal aorta. Left Iliac Artery Left iliac artery measures 1.52 x 1.48 cm. in the cross-sectional axis. Left iliac artery measures 1.42 cm. in the longitudinal axis. Peak systolic velocity in the left iliac artery measures 290.4 cm/sec. Right Iliac Artery Right iliac artery measures 0.88 x 0.80 cm. in the cross-sectional axis. Right iliac artery measures 0.85 cm. in the longitudinal axis. Peak systolic velocity in the right iliac artery measures 146.6 cm/sec. Procedure Aorta IVC Iliac vasculature or bypass grafts [id number]. Preliminary report given to Ree DESOUZA. Exam performed in department. VL/Abd Aortic/IVC Duplex scan Interpretation Summary Aorta patent, known dissection, ectasia to 2.88 cm Right iliac artery patent, normal caliber. 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
== END | disposition home or self-care (01) ==
LOC: CVS 07:47
PROVIDERS: PCP Family Medicine; Referring Provider Physician Assistant; Visit Provider Physician Assistant
DX: I71.02 Dissection of abdominal aorta (principal)
CPT/HCPCS: 93978